=== PATIENT | female | born 2000 | race African-American/Black ===

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

== ENCOUNTER → 2020-01-19 12:04 | Outpatient (CLI) | payer OTHER, SELFPAY ==
[2020-01-19 13:33] LABS: HCG Qualitative, Serum Negative (Negative)
[2020-01-20 09:40] LABS: Hep A Ab, IgM Negative (Negative); Hepatitis B Core Antibody IgM Negative (Negative); Hepatitis B Surface Antigen Negative (Negative)
[2020-01-20 11:53] LABS: HIV Screen 4th Generation wRfx Non Reactive (Non Reactive); HSV 1 IgG, Type Spec <0.91 index (0.00-0.90); HSV 2 IgG, Type Spec <0.91 index (0.00-0.90); Hepatitis C Antibody <0.1 s/co ratio (0.0-0.9); Rapid Plasma Reagin Ab Titer Non Reactive (NonRea<1:1)
[2020-01-22 08:52] LABS: Neisseria gonorrhoeae, NAA Negative (Negative)
== END ==
PROVIDERS: Visit Provider Nurse Practitioner Obstetrics & Gynecology
DX: Z20.2 Contact with and (suspected) exposure to infections with a predominantly sexual mode of transmission (principal)
CPT/HCPCS: 36415; 80074; 84703; 86592; 86695; 86703; 86790; 87491; 87591; G0432

== ENCOUNTER → 2020-05-30 18:50 | Outpatient (CLI) | payer OTHER, SELFPAY | PROVIDERS: Visit Provider Internal Medicine | DX: J02.9 Acute pharyngitis, unspecified (principal) | CPT/HCPCS: 87070 ==

== ENCOUNTER → 2020-08-23 15:46 | Outpatient (CLI) | payer OTHER, SELFPAY | LOC: LAB.DROPOF 15:46 | PROVIDERS: Visit Provider Internal Medicine | DX: J02.9 Acute pharyngitis, unspecified (principal) | CPT/HCPCS: 87070 ==

== ENCOUNTER → 2020-10-16 17:51 | Outpatient (CLI) | payer OTHER, SELFPAY ==
[2020-10-16 19:07] LABS: Basophils # 0.1 K/mm3 (0-0.2); Basophils % 1.1 % (0.1-2.0); Eosinophils # 0.4 K/mm3 (0.0-0.4); Hematocrit 41.1 % (37.0-47.0); Hemoglobin 14.5 g/dL (12.2-16.2); Lymphocytes % 40.9 % (10-50); Mean Corpuscular HGB Conc 35.3 g/dL (31.8-35.4); Mean Corpuscular Hemoglobin 29.9 pg (27.0-31.2); Mean Corpuscular Volume 84.7 fl (81-99); Mean Platelet Volume 8.2 fl (7.4-10.4); Monocytes # 0.5 K/mm3 (0.1-1.0); Neutrophils # 4.8 K/mm3 (1.8-7.8); Platelet Count 456 K/mm3 (142-424); Red Blood Count 4.85 M/mm3 (4.20-5.40); Red Cell Distribution Width 13.5 % (11.5-17.5); White Blood Count 9.9 K/mm3 (4.5-13.0)
[2020-10-16 20:08] LABS: T4 (Thyroxine) 11.4 ug/dl (5.53-11.0)
[2020-10-16 20:21] LABS: Thyroid Stimulating Hormone 1.94 uIU/mL (0.465-4.68)
[2020-10-16 20:50] LABS: Erythrocyte Sedimentation Rate 25 mm/hr (0-20)
[2020-10-17 11:15] LABS: Free T4 (Free Thyroxine) 0.85 ng/dl (0.78-2.19)
== END ==
LOC: LAB.DROPOF 17:52
PROVIDERS: Visit Provider Internal Medicine
DX: M54.2 Cervicalgia (principal); M79.2 Neuralgia and neuritis, unspecified; R53.83 Other fatigue
CPT/HCPCS: 84436; 84439; 84443; 85025; 85651

== ENCOUNTER 2020-11-21 12:41 | Emergency (ER) | payer OTHER, SELFPAY ==
[2020-11-21 13:30] VITALS: BP 138/86; PULSE 92; RESP 18; TEMP 36.8; O2SAT 97; BMI 36.0
--- NOTE | 2020-11-21 14:40 | HMH.EDUTC ---
[facility] Disposition Clinical Impression: Otitis media Qualifiers: Otitis media type: suppurative Chronicity: acute Laterality: bilateral Recurrence: non-recurrent Spontaneous tympanic membrane rupture: without spontaneous rupture Qualified Code(s): H66.003 - Acute suppurative otitis media without spontaneous rupture of ear drum, bilateral Disposition: Home, Self-Care Condition on Discharge: Good Instructions: Middle Ear Infection Additional Instructions: Drink plenty of fluids. Take tylenol or ibuprofen for pain or fever. Take the medications as directed. Follow up with your regular doctor. GO TO THE ER FOR ANY WORSENING SYMPTOMS Prescriptions: Brompheniramine/Pseudoephed/Dm [Bromfed Dm Cough Syrup] 5 ml PO Q6HP PRN #240 ml PRN Reason: Cough Transmission Status: Received by [facility] Amoxicillin [Amoxicillin 500mg Tab] 500 mg PO TID 10 Days #30 tab Transmission Status: Received by [facility] predniSONE [Deltasone 10mg tablet] 10 mg PO BID 3 Days #6 tab Transmission Status: Received by [facility] Referrals: Donald Munoz [Primary Care Provider] - Forms: Work/School Release Time of Disposition: 14:44 Medical Decision Making - Medical Records Medical records reviewed: No: I reviewed the patient's medical records. - Jarett Inquiry Pt receiving controlled substance: No Vital Signs: 11/21/20 13:30 11/21/20 14:46 Temperature 98.2 F 98.2 F Temperature Source Oral Pulse Rate 92 H Pulse Rate [Right Brachial] 92 H Respiratory Rate 18 18 Blood Pressure 138/86 Blood Pressure [Right Arm] 138/86 Blood Pressure Mean [Right Arm] 103 Blood Pressure Source [Right Arm] Automatic Cuff Blood Pressure Position [Right Arm] Sitting 02 Sat by Pulse Oximetry 97 Oxygen Delivery Method Room Air [facility] HPI - General Stated complaint: Bilateral ear pain Time Seen by Provider: 11/21/20 14:41 Mode of Arrival: Ambulatory Source of Information: Patient Limitations: No Limitations Description of Symptoms (Recalled from Triage Doc. by RN): PATIENT C/O STOPPED UP EARS, CONGESTION, RUNNY NOSE AND COUGH X 1 WEEK HEENT Symptoms (Recalled from RN notes): Yes Resp Symptoms (Recalled from RN notes): Yes Skin Symptoms (Recalled from RN notes): No MS Symptoms (Recalled from RN notes): No Functional Status (Recalled from RN notes): WNL - History of Present Illness Provider Complaint: She states that she has had bilateral ear pain for the past 2 days. She has a history of getting ear infections frequently at this time of the year. - Related Data Home Medications Medication Instructions Recorded Confirmed sertraline 100 mg tablet 100 mg PO DAILY tab 04/13/19 11/21/20 Bisoprolol Fumarate [Bisoprolol 5 mg PO DAILY 11/21/20 11/21/20 5mg Tablet] norgestimate-ethinyl estradioL 1 each PO DAILY 11/21/20 11/21/20 [Sprintec 28 Day Tablet] Previous Rx's Medication Instructions Recorded Amoxicillin [Amoxicillin 500mg Tab] 500 mg PO TID 10 Days #30 tab 11/21/20 Brompheniramine/Pseudoephed/Dm 5 ml PO Q6HP PRN #240 ml 11/21/20 [Bromfed Dm Cough Syrup] predniSONE [Deltasone 10mg tablet] 10 mg PO BID 3 Days #6 tab 11/21/20 Allergies Allergy/AdvReac Type Severity Reaction Status Date / Time No Known Allergies Allergy Verified 05/06/19 10:35 - Worker's Comp Is this a Worker's Comp case?: No [facility] History - Hepatitis A Screen Drug use history?: No High risk sexual behaviors?: No History of sexually transmitted infection?: No Currently employed?: No Childcare worker?: No Do you have indoor plumbing?: Yes Do you have electricity?: Yes Attestation statement:: This patient has been screened for Hepatitis A risk factors. I have reviewed the patient's past medical history: Yes Medical History: Reports:: Anxiety, Depression, Gastroesophageal Reflux Disease(GERD), Hypertension, Palpitations Other Surgeries: Yes: No Previous Surgery Amputation: No Fractures: No
[2020-11-21 14:46] VITALS: BP 138/86; PULSE 92; RESP 18; TEMP 36.8; O2SAT 97
== END 2020-11-21 14:48 | disposition home or self-care (01) ==
PROVIDERS: Emergency Provider Nurse Practitioner Family; PCP Internal Medicine
DX: H66.003 Acute suppurative otitis media without spontaneous rupture of ear drum, bilateral (principal); K21.9 Gastro-esophageal reflux disease without esophagitis; F41.8 Other specified anxiety disorders; F17.210 Nicotine dependence, cigarettes, uncomplicated
CPT/HCPCS: 99202; G0463

== ENCOUNTER 2021-03-27 07:18 | Emergency (ER) | payer OTHER, SELFPAY ==
[2021-03-27 07:19] VITALS: BP 115/76; PULSE 116; RESP 16; TEMP 39.4; O2SAT 98; BMI 36.3
[2021-03-27 07:49] LABS: Basophils # 0.2 K/mm3 (0-0.2); Basophils % 1.6 % (0.1-2.0); Eosinophils # 0.3 K/mm3 (0.0-0.4); Eosinophils % 3.2 % (0.1-12.0); Hematocrit 41.9 % (37.0-47.0); Hemoglobin 13.4 g/dL (12.2-16.2); Lymphocytes # 0.9 K/mm3 (0.7-4.5); Lymphocytes % 9.3 % (10-50); Mean Corpuscular Hemoglobin 28.8 pg (27.0-31.2); Mean Corpuscular Volume 90.1 fl (81-99); Mean Platelet Volume 7.4 fl (7.4-10.4); Monocytes # 0.7 K/mm3 (0.1-1.0); Monocytes % 7.6 % (1.7-9.3); Neutrophils # 7.3 K/mm3 (1.8-7.8); Neutrophils % 78.2 % (37.0-80.0); Platelet Count 350 K/mm3 (142-424); Red Blood Count 4.65 M/mm3 (4.20-5.40); Red Cell Distribution Width 13.7 % (11.5-17.5); White Blood Count 9.4 K/mm3 (4.5-13.0)
[2021-03-27 07:53] LABS: Microscopic, Urine URINE MICROSCOPIC (MICROSCOPIC)
[2021-03-27 07:55] LABS: Influenza A, PCR Not Detected (NotDetected); Influenza B, PCR Not Detected (NotDetected)
[2021-03-27 07:56] LABS: Appearance,Urine CLEAR (Clear); Bilirubin,Urine Negative (Negative); Blood, Urine Negative (Negative); Color,Urine YELLOW (Yellow); Glucose,Urine (UA) Negative (Negative); Ketones,Urine Negative (Negative); Leukocyte Esterase,Urine Negative (Negative); Nitrate,Urine Negative (Negative); Protein,Urine Negative (Negative); Specific Gravity, Urine >= 1.030 (1.005-1.030); Urobilinogen,Urine 0.2 EU/dl (0.2)
[2021-03-27 07:58] LABS: Urine Pregnancy, HCG Qual. Negative (Negative)
[2021-03-27 08:00] VITALS: BP 111/53; PULSE 99; O2SAT 98
--- NOTE | 2021-03-27 08:02 | HMH.EDGENADL ---
ED Disposition Clinical Impression: COVID-19 virus infection, Abdominal pain, lower Disposition: Home, Self-Care Condition on Discharge: Fair Instructions: DI for Acute Abdominal Pain, DI for COVID-19 (Suspected or Confirmed ) Additional Instructions: Rest, drink plenty of fluids. Tylenol or Ibuprofen for fever and/or aches and pains. Monitor your symptoms. IF YOU HAVE AN EMERGENCY WARNING SIGN (INCLUDING TROUBLE BREATHING), SEEK EMERGENCY MEDICAL CARE IMMEDIATELY. COVID-19 Isolation: People with COVID-19 should isolate for 5 days. Then if they are asymptomatic (no symptoms) or their symptoms are resolving (without fever for 24 hours), follow that by 5 days of wearing a mask when around others to minimize the risk of infecting people you encounter. If you test positive for COVID-19 and never develop symptoms, day 0 is the day of your positive viral test (based on the date you were tested) and day 1 is the first full day after your positive test. If you develop symptoms after testing positive, your 5-day isolation period must start over. Day 0 is your first day of symptoms. Day 1 is the first full day after your symptoms developed. What to do: Stay in a separate room from other household members, if possible. Use a separate bathroom, if possible. Avoid contact with other members of the household and pets. Don?t share personal household items, like cups, towels, and utensils. Wear a mask when around other people if able. Additional instructions for ABDOMINAL PAIN: Return immediately if worsening abdominal pain, vomiting, shortness of breath, fever, vomiting of blood or abdominal distention. Referrals: Donald Munoz [Primary Care Provider] - - Critical Care Critical Care Time: No Attestation: On 03/27/21, the high probability of a clinically significant, sudden or life threatening deterioration of the following system(s) required my full and direct attention, intervention and personal management. The time I documented below is in addition to time spent performing reported procedures but includes the following listed in this critical care notation. Medical Decision Making - Jarett Inquiry Pt receiving controlled substance: No Vital Signs: 03/27/21 07:19 03/27/21 08:00 03/27/21 08:37 Temperature 103 F H 100.1 F H Temperature Source Oral Oral Pulse Rate 99 H 92 H Pulse Rate [Radial] 116 H Respiratory Rate 16 16 Blood Pressure 111/53 L 124/67 Blood Pressure [Right Arm] 115/76 Blood Pressure Mean 77 Blood Pressure Mean [Right Arm] 89 Blood Pressure Position Sitting 02 Sat by Pulse Oximetry 98 98 97 Oxygen Delivery Method Room Air 03/27/21 09:00 Temperature Temperature Source Pulse Rate 90 Pulse Rate [Radial] Respiratory Rate 17 Blood Pressure 120/53 L Blood Pressure [Right Arm] Blood Pressure Mean Blood Pressure Mean [Right Arm] Blood Pressure Position 02 Sat by Pulse Oximetry 96 Oxygen Delivery Method Room Air - Lab Data Lab Results 03/27/21 07:25: Urine Color Yellow, Urine Appearance Clear, Urine pH 6.0, Ur Specific [place] >= 1.030, Urine Protein Negative, Urine Glucose (UA) Negative, Urine Ketones Negative, Urine Blood Negative, Urine Nitrate Negative, Urine Bilirubin Negative, Urine Urobilinogen 0.2, Ur Leukocyte Esterase Negative, Urine RBC None, Urine WBC None, Ur Squamous Epith Cells None, Urine Bacteria None 03/27/21 07:32: SARS-CoV-2 (PCR) Detected A, Influenza A Untype (PCR) Not detected, Influenza Type B (PCR) Not detected 03/27/21 07:35: Urine HCG, Qual Negative 03/27/21 07:39: WBC 9.4, RBC 4.65, Hgb 13.4, Hct 41.9, MCV 90.1, MCH 28.8, MCHC 32.0, RDW 13.7, Plt Count 350, MPV 7.4, Neut % (Auto) 78.2, Lymph % (Auto) 9.3 L, [place] % (Auto) 7.6, Eos % (Auto) 3.2, Baso % (Auto) 1.6, Neut # (Auto) 7.3, Lymph # (Auto) 0.9, [place] # (Auto) 0.7, Eos # (Auto) 0.3, Baso # (Auto) 0.2 03/27/21 07:39: Sodium 135 L, Potassium 3.9, Chloride 100, Carbon Dioxide 25, Anion
[2021-03-27 08:05] LABS: Alanine Aminotransferase 20 U/L (12-78); Albumin Level 4.2 g/dl (3.5-5.0); Albumin/Globulin Ratio 1.2 (1.1-1.8); Alkaline Phosphatase 92 U/L (38-126); Anion Gap 13.9 mEq/L (5-15); Aspartate Amino Transferase 31 U/L (14-36); Bilirubin,Total 0.3 mg/dl (0.2-1.3); Blood Urea Nitrogen 9 mg/dl (7-17); Calcium 9.8 mg/dl (8.4-10.2); Carbon Dioxide 25 mmol/L (22.0-30.0); Chloride 100 mmol/L (98-107); Creatinine Clearance Estimated 188 mL/min (50-200); Estimated Glomerular Filt Rate 107 ml/min (>60); GFR (African American) 129 ML/MIN (>60); Globulin 3.4 g/dL (1.3-3.2); Glucose 102 mg/dl (74-100); Potassium 3.9 mmoL/L (3.5-5.1); Sodium 135 mmol/L (136-145); Total Protein,Serum 7.6 g/dl (6.3-8.2)
--- NOTE | 2021-03-27 08:10 | CT_ITS ---
FINAL REPORT CLINICAL HISTORY: abdo pain, fever COMPARISON: January 02, 2019 FINDINGS: CT OF THE ABDOMEN AND PELVIS WITH CONTRAST Axial CT images of the abdomen and pelvis were obtained after the administration of intravenous contrast. Coronal reformatted images were also obtained and reviewed.This study was performed with techniques to keep radiation doses as low as reasonably achievable (ALARA). Individualized dose reduction techniques using automated exposure control or adjustment of mA and/or kV according to the patient's size were employed. Abdomen: The lung bases are clear. The heart is normal in size. The liver has an unremarkable appearance, without evidence of mass or biliary ductal dilatation. The gallbladder is present. The spleen is unremarkable. No adrenal mass is present. The pancreas has an unremarkable appearance. The kidneys are normal, without evidence of mass or hydronephrosis. The aorta is normal in caliber. There is no free fluid or adenopathy. No mass or abnormal fluid collection is seen. Pelvis: The appendix is normal. The urinary bladder is unremarkable. No inflammatory process is seen. There are multiple mildly enlarged mesenteric lymph nodes that are partially improved since the prior exam and may be reactive. There is no evidence of bowel obstruction. IMPRESSION: Partially improved mildly enlarged mesenteric lymph nodes may be reactive. Normal appendix. Reviewed, Interpreted and Dictated by Hoang Toussaint III, MD Transcribed by Dong Self Authenticated by Hoang Toussaint III, MD on 03/27/2021 09:19:01 AM [facility]
[2021-03-27 08:12] LABS: Lactic Acid 1.6 mmol/L (0.7-2.1)
--- NOTE | 2021-03-27 08:13 | XR_ITS ---
FINAL REPORT CLINICAL HISTORY: cough, fever COMPARISON: November 18, 2018 FINDINGS: Two views of the chest were obtained. The heart size and pulmonary vascularity are within normal limits. The mediastinum is normal. No acute pulmonary abnormality is identified. There is no pneumothorax. The bony thorax is intact. IMPRESSION: No active cardiopulmonary disease. Reviewed, Interpreted and Dictated by Hoang Toussaint III, MD Transcribed by Carmen Sorto Authenticated by Hoang Toussaint III, MD on 03/27/2021 09:18:59 AM [facility]
[2021-03-27 08:24] LABS: Coronavirus 19, PCR Detected (NotDetected)
[2021-03-27 08:37] VITALS: BP 124/67; PULSE 92; RESP 16; TEMP 37.8; O2SAT 97
[2021-03-27 08:41] LABS: Strep Scrn Group A (Rapid) Negative (Negative)
[2021-03-27 09:00] VITALS: BP 120/53; PULSE 90; RESP 17; O2SAT 96
[2021-03-27 09:30] VITALS: BP 119/50; PULSE 93; RESP 17; O2SAT 94
[2021-03-27 09:40] VITALS: BP 113/74; PULSE 74; RESP 16; TEMP 36.6; O2SAT 98
== END 2021-03-27 09:42 | disposition home or self-care (01) ==
PROVIDERS: Emergency Medicine; Emergency Provider Emergency Medicine; PCP Internal Medicine
DX: U07.1 COVID-19 (principal); R10.30 Lower abdominal pain, unspecified; F41.8 Other specified anxiety disorders; M54.50 Low back pain, unspecified; K21.9 Gastro-esophageal reflux disease without esophagitis; F17.210 Nicotine dependence, cigarettes, uncomplicated
CPT/HCPCS: 71046; 74177; 80053; 81001; 81025; 83605; 85025; 87040; 87430; 96365; 99283; C9803; Q9967; U0003; U0005

== ENCOUNTER → 2021-06-29 12:25 | Outpatient (CLI) | payer OTHER, SELFPAY ==
[2021-06-29 15:11] LABS: HCG,Quantitative 15974 mIU/ml (0-5.42)
== END ==
PROVIDERS: Visit Provider Obstetrics & Gynecology
DX: Z01.419 Encounter for gynecological examination (general) (routine) without abnormal findings (principal)
CPT/HCPCS: 36415; 84702

== ENCOUNTER → 2021-07-31 11:57 | Outpatient (CLI) | payer OTHER, SELFPAY ==
[2021-07-31 12:50] LABS: Basophils # 0.1 K/mm3 (0-0.2); Basophils % 1.1 % (0.1-2.0); Eosinophils # 0.4 K/mm3 (0.0-0.4); Eosinophils % 3.1 % (0.1-12.0); Hematocrit 41.3 % (37.0-47.0); Hemoglobin 13.7 g/dL (12.2-16.2); Lymphocytes # 4.5 K/mm3 (0.7-4.5); Lymphocytes % 35.1 % (10-50); Mean Corpuscular HGB Conc 33.1 g/dL (31.8-35.4); Mean Corpuscular Hemoglobin 29.5 pg (27.0-31.2); Mean Corpuscular Volume 88.9 fl (81-99); Mean Platelet Volume 7.6 fl (7.4-10.4); Monocytes # 0.6 K/mm3 (0.1-1.0); Monocytes % 4.5 % (1.7-9.3); Neutrophils # 7.2 K/mm3 (1.8-7.8); Neutrophils % 56.2 % (37.0-80.0); Platelet Count 398 K/mm3 (142-424); Red Blood Count 4.65 M/mm3 (4.20-5.40); Red Cell Distribution Width 14.1 % (11.5-17.5); White Blood Count 12.8 K/mm3 (4.8-10.8)
[2021-07-31 13:01] LABS: Alanine Aminotransferase 14 U/L (12-78); Albumin Level 3.7 g/dl (3.5-5.0); Albumin/Globulin Ratio 1.2 (1.1-1.8); Alkaline Phosphatase 100 U/L (38-126); Aspartate Amino Transferase 24 U/L (14-36); Bilirubin,Total 0.3 mg/dl (0.2-1.3); Blood Urea Nitrogen 8 mg/dl (7-17); Calcium 9.9 mg/dl (8.4-10.2); Carbon Dioxide 24 mmol/L (22.0-30.0); Chloride 101 mmol/L (98-107); Estimated Glomerular Filt Rate 156 ml/min (>60); GFR (African American) 188 ML/MIN (>60); Globulin 3.1 g/dL (1.3-3.2); Glucose 87 mg/dl (74-100); Sodium 134 mmol/L (136-145); Total Protein,Serum 6.8 g/dl (6.3-8.2)
[2021-08-01 06:27] LABS: HSV 1 IgG, Type Spec 8.84 index (0.00-0.90); HSV 2 IgG, Type Spec <0.91 index (0.00-0.90); Rubella Antibodies, IgG 3.68 index (Immune >0.99)
[2021-08-01 09:29] LABS: HIV Screen 4th Generation wRfx Non Reactive (Non Reactive); Hepatitis B Surface Antigen Negative (Negative); Hepatitis C Antibody <0.1 s/co ratio (0.0-0.9)
[2021-08-01 11:19] LABS: Rapid Plasma Reagin Ab Titer Non Reactive (NonRea<1:1)
== END ==
LOC: LAB 11:58
PROVIDERS: Visit Provider Obstetrics & Gynecology
DX: Z34.90 Encounter for supervision of normal pregnancy, unspecified, unspecified trimester (principal); Z3A.01 Less than 8 weeks gestation of pregnancy; I10 Essential (primary) hypertension
CPT/HCPCS: 36415; 80053; 85025; 86592; 86695; 86703; 86762; 86790; 86850; 87340; 87380; G0432

== ENCOUNTER → 2021-08-28 12:17 | Outpatient (CLI) | payer OTHER, SELFPAY | PROVIDERS: PCP Internal Medicine; Visit Provider Obstetrics & Gynecology | DX: Z31.430 Encounter of female for testing for genetic disease carrier status for procreative management (principal); Z36.0 Encounter for antenatal screening for chromosomal anomalies; O28.9 Unspecified abnormal findings on antenatal screening of mother | CPT/HCPCS: 36415 ==

== ENCOUNTER → 2021-10-09 13:52 | Outpatient (CLI) | payer OTHER, MEDICAID, SELFPAY ==
--- NOTE | 2021-10-09 13:53 | US_ITS ---
FINAL REPORT CLINICAL HISTORY: OB complete FINDINGS: There is a single live intrauterine gestation. Presentation is breech. The cervix is closed and measures 4.2 cm. Placenta is anterior. Cardiac activity is confirmed at 156 bpm. Three-vessel cord with satisfactory umbilical cord insertion. Four-chamber heart is noted. brain and ventricles are unremarkable. Chest and diaphragm are unremarkable. ABDOMEN: Both kidneys are unremarkable. Stomach is unremarkable. SPINE: No anomalies identified. Both arms and legs noted. AMNIOTIC FLUID: Appropriate amount. MEASUREMENTS: ULTRASOUND AGE: 20 weeks 1 days. GESTATION AGE: 20 weeks 1 days. ESTIMATED WEIGHT: 330 g GROWTH PERCENTILE: 41% BPD: 4.7 cm consistent with 20 weeks 1 days. OFD: 6.3 cm consistent with 21 weeks 0 days. HC: 17.4 cm consistent with 20 weeks 0 days. AC: 14.9 cm consistent with 20 weeks 1 days. FL: 3.2 cm consistent with 20 weeks 1 days. CEREBELLUM: 2.0 cm consistent with 20 weeks 2 days. HUMERUS: 3.2 cm consistent with 20 weeks 4 days. HC/AC: 1.17 CI: 74% FL/BPD: 69% FL/AC: 22% IMPRESSION: Single living IUP with an ultrasound age of 20 weeks 1 days. Reviewed, Interpreted and Dictated by Hoang Toussaint III, MD Transcribed by Dong Self Authenticated and [facility]
== END ==
PROVIDERS: PCP Internal Medicine; Visit Provider Obstetrics & Gynecology
DX: Z34.90 Encounter for supervision of normal pregnancy, unspecified, unspecified trimester (principal)
CPT/HCPCS: 76811

== ENCOUNTER 2021-11-17 09:14 | Outpatient (CLI) | payer MEDICAID, SELFPAY ==
[2021-11-17 09:22] VITALS: BMI 40.9
[2021-11-17 09:42] VITALS: BP 127/76; PULSE 86; RESP 18; TEMP 36.9; O2SAT 98; BMI 40.9
[2021-11-17 10:01] LABS: Microscopic, Urine URINE MICROSCOPIC (MICROSCOPIC)
[2021-11-17 10:04] LABS: Appearance,Urine CLEAR (Clear); Bilirubin,Urine Negative (Negative); Blood, Urine Negative (Negative); Color,Urine YELLOW (Yellow); Glucose,Urine (UA) Negative (Negative); Ketones,Urine Negative (Negative); Leukocyte Esterase,Urine Negative (Negative); Nitrate,Urine Negative (Negative); PH,Urine 7.5 (5.0-8.5); Protein,Urine Negative (Negative); Specific Gravity, Urine 1.015 (1.005-1.030); Urobilinogen,Urine 0.2 EU/dl (0.2)
[2021-11-17 10:12] LABS: Fetal Membrane Rupture (Rapid) Negative (Negative)
[2021-11-17 10:17] LABS: Amphetamine/Metha Screen,Urine Negative ng/ml (<1000); Bacteria,Urine Trace /lpf; Benzodiazepines Screen,Urine Negative ng/ml (<200); WBC,Urine Occasional #/hpf (0-3)
[2021-11-17 10:18] LABS: Barbiturates Screen,Urine Negative ng/ml (<200); Cannabinoid Screen,Urine Negative ng/ml (<50)
[2021-11-17 10:19] LABS: Cocaine Screen,Urine Negative ng/ml (<300)
[2021-11-17 10:20] LABS: Methadone Screen,Urine Negative ng/ml (<300); Opiate Screen,Urine Negative ng/ml (<300)
[2021-11-17 10:21] LABS: Phencyclidine Screen,Urine Negative ng/ml (<25)
== END 2021-11-17 10:32 | disposition home or self-care (01) ==
LOC: OBOUT 09:15 → OB 09:15
PROVIDERS: PCP Internal Medicine; Visit Provider Nurse Practitioner Obstetrics & Gynecology
DX: O26.899 Other specified pregnancy related conditions, unspecified trimester (principal); Z3A.25 25 weeks gestation of pregnancy
CPT/HCPCS: 59025; 80305; 81001; 84112; G0463

== ENCOUNTER → 2021-11-17 10:36 | Outpatient (CLI) | payer MEDICAID, SELFPAY ==
[2021-11-17 11:07] LABS: Basophils # 0.3 K/mm3 (0-0.2); Basophils % 1.7 % (0.1-2.0); Eosinophils # 0.5 K/mm3 (0.0-0.4); Eosinophils % 3.3 % (0.1-12.0); Hematocrit 38.9 % (37.0-47.0); Hemoglobin 12.7 g/dL (12.2-16.2); Lymphocytes # 4.7 K/mm3 (0.7-4.5); Lymphocytes % 28.6 % (10-50); Mean Corpuscular HGB Conc 32.7 g/dL (31.8-35.4); Mean Corpuscular Hemoglobin 28.8 pg (27.0-31.2); Mean Corpuscular Volume 88.1 fl (81-99); Mean Platelet Volume 7.9 fl (7.4-10.4); Monocytes # 0.8 K/mm3 (0.1-1.0); Monocytes % 4.7 % (1.7-9.3); Neutrophils # 10.1 K/mm3 (1.8-7.8); Neutrophils % 61.7 % (37.0-80.0); Platelet Count 388 K/mm3 (142-424); Red Blood Count 4.42 M/mm3 (4.20-5.40); White Blood Count 16.3 K/mm3 (4.8-10.8)
[2021-11-17 11:12] LABS: MANUAL DIFFERENTIAL MANUAL DIFFERENTIAL (MANUAL DIFF)
[2021-11-17 11:15] LABS: Glucose,Fasting 82 mg/dl (74-100)
[2021-11-17 12:31] LABS: Eosinophils % 3 % (0-3); Lymphocytes % 44 % (10-50); Monocytes % 1 % (2-9); Neutrophils % 52 % (42-76); Platelet Estimate Normal; Total Cells Counted 100
[2021-11-17 12:33] LABS: RBC Morphology Normal
[2021-11-17 13:15] LABS: Glucose 1 Hour 117 mg/dL (74-100)
== END ==
PROVIDERS: PCP Internal Medicine; Visit Provider Obstetrics & Gynecology
DX: Z34.90 Encounter for supervision of normal pregnancy, unspecified, unspecified trimester (principal)
CPT/HCPCS: 36415; 82951; 85007; 85025

== ENCOUNTER 2022-01-07 10:12 | Outpatient (CLI) | payer MEDICAID, SELFPAY ==
[2022-01-07 10:23] VITALS: BMI 42.5
[2022-01-07 10:55] VITALS: BP 154/92; PULSE 116; RESP 17; TEMP 37.1; O2SAT 96; BMI 42.5
[2022-01-07 10:58] LABS: Appearance,Urine SL CLOUDY (Clear); Bilirubin,Urine Negative (Negative); Blood, Urine Negative (Negative); Color,Urine YELLOW (Yellow); Glucose,Urine (UA) Negative (Negative); Ketones,Urine TRACE (Negative); Leukocyte Esterase,Urine Negative (Negative); Microscopic, Urine URINE MICROSCOPIC (MICROSCOPIC); Nitrate,Urine Negative (Negative); Protein,Urine TRACE (Negative); Specific Gravity, Urine >= 1.030 (1.005-1.030); Urobilinogen,Urine 0.2 EU/dl (0.2)
[2022-01-07 11:05] VITALS: BP 144/82; PULSE 103
[2022-01-07 11:09] LABS: Amphetamine/Metha Screen,Urine Negative ng/ml (<1000)
[2022-01-07 11:10] LABS: Barbiturates Screen,Urine Negative ng/ml (<200)
[2022-01-07 11:11] LABS: Benzodiazepines Screen,Urine Negative ng/ml (<200); Cannabinoid Screen,Urine Negative ng/ml (<50)
[2022-01-07 11:12] LABS: Cocaine Screen,Urine Negative ng/ml (<300)
[2022-01-07 11:13] LABS: Bacteria,Urine Trace /lpf; Methadone Screen,Urine Negative ng/ml (<300); Opiate Screen,Urine Negative ng/ml (<300); RBC,Urine Occasional #/hpf (0-3)
[2022-01-07 11:14] LABS: Phencyclidine Screen,Urine Negative ng/ml (<25)
[2022-01-07 11:43] VITALS: BP 129/74; PULSE 94
[2022-01-07 12:05] LABS: Basophils # 0.2 K/mm3 (0-0.2); Basophils % 1.2 % (0.1-2.0); Eosinophils # 0.5 K/mm3 (0.0-0.4); Eosinophils % 3.8 % (0.1-12.0); Hematocrit 39.5 % (37.0-47.0); Hemoglobin 12.9 g/dL (12.2-16.2); Lymphocytes # 3.5 K/mm3 (0.7-4.5); Lymphocytes % 25.6 % (10-50); Mean Corpuscular HGB Conc 32.6 g/dL (31.8-35.4); Mean Corpuscular Hemoglobin 27.7 pg (27.0-31.2); Mean Corpuscular Volume 85.1 fl (81-99); Mean Platelet Volume 7.9 fl (7.4-10.4); Monocytes # 0.9 K/mm3 (0.1-1.0); Monocytes % 6.8 % (1.7-9.3); Neutrophils # 8.5 K/mm3 (1.8-7.8); Neutrophils % 62.7 % (37.0-80.0); Platelet Count 388 K/mm3 (142-424); Red Blood Count 4.64 M/mm3 (4.20-5.40); Red Cell Distribution Width 13.9 % (11.5-17.5); White Blood Count 13.6 K/mm3 (4.8-10.8)
[2022-01-07 12:17] LABS: Alanine Aminotransferase 16 U/L (12-78); Aspartate Amino Transferase 23 U/L (14-36); Blood Urea Nitrogen 8 mg/dl (7-17); Calcium 9.4 mg/dl (8.4-10.2); Carbon Dioxide 24 mmol/L (22.0-30.0); Chloride 101 mmol/L (98-107); Creatinine Clearance Estimated 184 mL/min (50-200); Estimated Glomerular Filt Rate 201 ml/min (>60); GFR (African American) 244 ML/MIN (>60); Glucose 117 mg/dl (74-100); Sodium 134 mmol/L (136-145); Uric Acid 4.6 mg/dl (2.5-6.2)
[2022-01-07 12:22] LABS: Activated Partial Thrombo Time 24.2 seconds (22.8-30.6); Fibrinogen 746 mg/dL (229.9-363.5); INR 0.88 (0.9-1.1); Prothrombin Time 9.6 seconds (10.1-12.5)
[2022-01-07 12:25] LABS: D-Dimer 1.06 ug/mL (0.0-0.5)
[2022-01-07 12:31] LABS: Lactate Dehydrogenase 180 U/L (313-618)
[2022-01-07 12:55] LABS: Creatinine,Urine Random 261 mg/dL (Not Estab.)
[2022-01-07 13:00] LABS: Microalbumin/Creatinine Ratio 21.4
== END 2022-01-07 13:10 | disposition home or self-care (01) ==
LOC: OBOUT 10:15 → OB 10:16
PROVIDERS: PCP Internal Medicine; Visit Provider Obstetrics & Gynecology
DX: O26.893 Other specified pregnancy related conditions, third trimester (principal); Z3A.33 33 weeks gestation of pregnancy; R00.0 Tachycardia, unspecified; R42 Dizziness and giddiness
CPT/HCPCS: 59025; 80048; 80305; 81001; 82043; 82570; 83615; 84450; 84460; 84550; 85025; 85378; 85384; 85610; 85730; G0463

== ENCOUNTER 2022-01-24 00:32 | Outpatient (CLI) | payer MEDICAID, SELFPAY ==
[2022-01-24 00:51] VITALS: BMI 44.4
[2022-01-24 01:15] VITALS: BP 159/95; PULSE 89; RESP 18; TEMP 37; O2SAT 100; BMI 44.4
== END 2022-01-24 02:35 | disposition home or self-care (01) ==
LOC: OBOUT 00:33 → OB 00:33
PROVIDERS: PCP Internal Medicine; Visit Provider Obstetrics & Gynecology
DX: O26.893 Other specified pregnancy related conditions, third trimester (principal); Z3A.35 35 weeks gestation of pregnancy
CPT/HCPCS: 59025; 96360

== ENCOUNTER → 2022-02-04 16:51 | Outpatient (CLI) | payer MEDICAID, SELFPAY ==
[2022-02-04 17:25] LABS: Basophils # 0.1 K/mm3 (0-0.2); Basophils % 0.9 % (0.1-2.0); Eosinophils # 0.4 K/mm3 (0.0-0.4); Eosinophils % 2.5 % (0.1-12.0); Hematocrit 39.1 % (37.0-47.0); Hemoglobin 12.2 g/dL (12.2-16.2); Lymphocytes # 3.8 K/mm3 (0.7-4.5); Lymphocytes % 27.4 % (10-50); Mean Corpuscular HGB Conc 31.1 g/dL (31.8-35.4); Mean Corpuscular Hemoglobin 26.4 pg (27.0-31.2); Mean Corpuscular Volume 84.8 fl (81-99); Mean Platelet Volume 8.2 fl (7.4-10.4); Monocytes # 0.7 K/mm3 (0.1-1.0); Monocytes % 5.1 % (1.7-9.3); Neutrophils % 64.1 % (37.0-80.0); Platelet Count 418 K/mm3 (142-424); Red Blood Count 4.62 M/mm3 (4.20-5.40); Red Cell Distribution Width 14.5 % (11.5-17.5)
[2022-02-04 17:38] LABS: Fibrinogen 610 mg/dL (229.9-363.5)
[2022-02-04 18:54] LABS: Alanine Aminotransferase 14 U/L (12-78); Albumin Level 3.6 g/dl (3.5-5.0); Albumin/Globulin Ratio 1.1 (1.1-1.8); Alkaline Phosphatase 698 U/L (38-126); Anion Gap 17.6 mEq/L (5-15); Aspartate Amino Transferase 25 U/L (14-36); Bilirubin,Total 0.3 mg/dl (0.2-1.3); Blood Urea Nitrogen 13 mg/dl (7-17); Calcium 10.3 mg/dl (8.4-10.2); Carbon Dioxide 25 mmol/L (22.0-30.0); Chloride 96 mmol/L (98-107); Estimated Glomerular Filt Rate 156 ml/min (>60); GFR (African American) 188 ML/MIN (>60); Globulin 3.2 g/dL (1.3-3.2); Glucose 86 mg/dl (74-100); Potassium 4.6 mmoL/L (3.5-5.1); Sodium 134 mmol/L (136-145); Total Protein,Serum 6.8 g/dl (6.3-8.2); Uric Acid 4.9 mg/dl (2.5-6.2)
[2022-02-04 18:57] LABS: Microalbumin/Creatinine Ratio 57.4
[2022-02-04 18:59] LABS: Creatinine,Urine Random 206 mg/dL (Not Estab.)
== END ==
LOC: LAB 16:52 → LAB.DROPOF 02-05 06:08
PROVIDERS: PCP Internal Medicine; Visit Provider Obstetrics & Gynecology
DX: Z34.90 Encounter for supervision of normal pregnancy, unspecified, unspecified trimester (principal); I10 Essential (primary) hypertension
CPT/HCPCS: 36415; 80053; 82043; 82570; 84550; 85025; 85384; 86403

== ENCOUNTER → 2022-02-07 13:27 | Outpatient (CLI) | payer MEDICAID, SELFPAY ==
[2022-02-07 17:11] LABS: Collection Time,Urine 24 hours; Total Volume,Urine 550 mL (600-1600)
[2022-02-07 22:33] LABS: Creatinine 24 Hour,Urine 1183 mg/24hr (630-2500)
[2022-02-07 22:35] LABS: Creatinine,Urine Random 215 mg/dL (Not Estab.)
[2022-02-07 23:28] LABS: Total Protein 24 Hour,Urine 72 mg/24 hr (40-90)
[2022-02-08 07:12] LABS: Creatinine Clearance Urine 133.4 mL/min (25-115); Patient Height,Urine 63 inches; Patient Weight,Urine 253 lbs
== END ==
PROVIDERS: PCP Internal Medicine; Visit Provider Obstetrics & Gynecology
DX: Z34.90 Encounter for supervision of normal pregnancy, unspecified, unspecified trimester (principal); I10 Essential (primary) hypertension
CPT/HCPCS: 82575; 84155

== ENCOUNTER 2022-02-08 15:56 | Outpatient (CLI) | payer MEDICAID, SELFPAY ==
[2022-02-08] VITALS (7 sets, daily range): BP systolic 138–167; BP diastolic 79–109; PULSE 96; RESP 18–20; TEMP 37.1; O2SAT 100; BMI 44.8
[2022-02-08 17:55] LABS: Microscopic, Urine URINE MICROSCOPIC (MICROSCOPIC)
[2022-02-08 18:09] LABS: Appearance,Urine CLEAR (Clear); Bilirubin,Urine Negative (Negative); Blood, Urine Negative (Negative); Color,Urine YELLOW (Yellow); Glucose,Urine (UA) Negative (Negative); Ketones,Urine Negative (Negative); Leukocyte Esterase,Urine Negative (Negative); Nitrate,Urine Negative (Negative); Protein,Urine 1+ (Negative); Specific Gravity, Urine >= 1.030 (1.005-1.030); Urobilinogen,Urine 0.2 EU/dl (0.2)
[2022-02-08 18:22] LABS: Benzodiazepines Screen,Urine Negative ng/ml (<200)
[2022-02-08 18:23] LABS: Amphetamine/Metha Screen,Urine Negative ng/ml (<1000)
[2022-02-08 18:24] LABS: Bacteria,Urine Trace /lpf; Barbiturates Screen,Urine Negative ng/ml (<200); Cannabinoid Screen,Urine Negative ng/ml (<50); WBC,Urine Occasional #/hpf (0-3)
[2022-02-08 18:25] LABS: Cocaine Screen,Urine Negative ng/ml (<300)
[2022-02-08 18:26] LABS: Methadone Screen,Urine Negative ng/ml (<300); Opiate Screen,Urine Negative ng/ml (<300)
[2022-02-08 18:27] LABS: Phencyclidine Screen,Urine Negative ng/ml (<25)
== END 2022-02-08 18:30 | disposition home or self-care (01) ==
LOC: OBOUT 15:59 → OB 16:00
PROVIDERS: Obstetrics & Gynecology; PCP Obstetrics & Gynecology; Visit Provider Obstetrics & Gynecology
DX: Z34.90 Encounter for supervision of normal pregnancy, unspecified, unspecified trimester (principal)
CPT/HCPCS: 59025; 80305; 81001

== ENCOUNTER 2022-02-09 15:38 | Inpatient (IN) | payer MEDICAID, SELFPAY ==
[2022-02-09] VITALS (14 sets, daily range): BP systolic 125–168; BP diastolic 64–101; PULSE 87–109; RESP 17–18; TEMP 36.7–36.8; O2SAT 98–99; BMI 44.8
[2022-02-09 14:32] LABS: Barbiturates Screen,Urine Negative ng/ml (<200)
[2022-02-09 14:33] LABS: Amphetamine/Metha Screen,Urine Negative ng/ml (<1000); Benzodiazepines Screen,Urine Negative ng/ml (<200)
[2022-02-09 14:34] LABS: Cannabinoid Screen,Urine Negative ng/ml (<50)
[2022-02-09 14:35] LABS: Cocaine Screen,Urine Negative ng/ml (<300); Methadone Screen,Urine Negative ng/ml (<300)
[2022-02-09 14:36] LABS: Opiate Screen,Urine Negative ng/ml (<300)
[2022-02-09 14:37] LABS: Phencyclidine Screen,Urine Negative ng/ml (<25)
[2022-02-09 15:45] LABS: Basophils # 0.1 K/mm3 (0-0.2); Basophils % 0.8 % (0.1-2.0); Eosinophils # 0.3 K/mm3 (0.0-0.4); Eosinophils % 1.9 % (0.1-12.0); Hematocrit 37.8 % (37.0-47.0); Lymphocytes # 3.8 K/mm3 (0.7-4.5); Lymphocytes % 27.4 % (10-50); Mean Corpuscular HGB Conc 31.8 g/dL (31.8-35.4); Mean Corpuscular Hemoglobin 26.7 pg (27.0-31.2); Mean Corpuscular Volume 84.1 fl (81-99); Mean Platelet Volume 8.1 fl (7.4-10.4); Monocytes % 7.4 % (1.7-9.3); Neutrophils # 8.8 K/mm3 (1.8-7.8); Neutrophils % 62.5 % (37.0-80.0); Platelet Count 418 K/mm3 (142-424); Red Cell Distribution Width 14.7 % (11.5-17.5)
[2022-02-09 16:09] LABS: Coronavirus 19, PCR Not Detected (NotDetected); Influenza A, PCR Not Detected (NotDetected); Influenza B, PCR Not Detected (NotDetected)
[2022-02-09 16:19] LABS: Magnesium 1.6 mg/dl (1.6-2.3)
--- NOTE | 2022-02-09 17:00 | EXP.HP ---
History of Present Illness *Admission Date: 02/09/22 *Reason for visit:: Increased blood pressure, anxiety *History of present illness: She is a 21-year-old 1 para 0 at 37 weeks gestational age. She was seen yesterday with increased blood pressure and it seemed to settle on its own. She also has severe anxiety and we thought the blood pressure may be elevated as result of that. Her [facility] lab work was completely normal. Today she started feeling jittery all day and her blood pressure is slightly elevated today again. She is on labetalol 200 mg twice daily. She did take her dose this morning. Given the fact that she is 37 weeks along and her blood pressure is elevated, we will go ahead and induce her labor. [facility] Disclaimer: The information contained in this section may have been updated after the patient was seen, as this information can be updated by other users. Medical History Anxiety Carpal tunnel syndrome during Essential hypertension Family History No significant family history Social History Smoking Status: Current every day smoker tobacco type: e-cigarettes alcohol intake: current substance use type: denies use current occupational status: employed Travel in the last 8 weeks: None household members: family housing: house Review of Systems Review of Systems Review of systems:: pertinent systems reviewed and negative unless documented below Meds Home Medications and Allergies Home Medications Medication Instructions Recorded Confirmed Type sertraline 100 mg tablet 100 mg PO DAILY Depression 04/13/19 02/04/22 History prenat.vits,jemima,hjd-slpr-pmavh 1 tab PO DAILY Supplement 07/06/21 02/04/22 History famotidine 20 mg tablet (Pepcid) 20 mg PO DAILY Heartburn 01/17/22 02/04/22 History buspirone 5 mg tablet 5 mg PO BID Anxiety 01/24/22 02/04/22 History labetalol 100 mg tablet 100 mg PO BID #60 tabs 02/08/22 Rx New Prescriptions to Start Prescriptions: Allergies Allergy/AdvReac Type Severity Reaction Status Date / Time doxylamine AdvReac Severe Shakiness Verified 02/04/22 15:34 [From Unisom (doxylamine)] Exam Data for Last 24 hours Vital signs and Labs for Last 24 Hours: Temp Pulse Resp BP Pulse Ox 98.0 F 109 H 18 168/99 H 99 02/09/22 14:00 02/09/22 14:00 02/09/22 14:00 02/09/22 14:00 02/09/22 14:00 Laboratory Results - last 24 hr 02/09/22 13:55: Urine Opiates Screen Negative, Urine Methadone Screen Negative, Ur Barbituates Screen Negative, Ur Phencyclidine Scrn Negative, Ur Amphetamines Screen Negative, U Benzodiazepines Scrn Negative, Urine Cocaine Screen Negative, U Marijuana (THC) Screen Negative 02/09/22 15:05: SARS-CoV-2 (PCR) Not detected, Influenza A Untype (PCR) Not detected, Influenza Type B (PCR) Not detected 02/09/22 15:20: WBC 14.0 H, RBC 4.50, Hgb 12.0 L, Hct 37.8, MCV 84.1, MCH 26.7 L, MCHC 31.8, RDW 14.7, Plt Count 418, MPV 8.1, Neut % (Auto) 62.5, Lymph % (Auto) 27.4, [place] % (Auto) 7.4, Eos % (Auto) 1.9, Baso % (Auto) 0.8, Neut # (Auto) 8.8 H, Lymph # (Auto) 3.8, [place] # (Auto) 1.0, Eos # (Auto) 0.3, Baso # (Auto) 0.1 02/09/22 15:20: Magnesium 1.6 I & O for Last 24 hours: Intake & Output 02/07/22 02/08/22 02/09/22 02/10/22 11:59 11:59 11:59 11:59 Weight 253 lb Constitutional Constitutional: no acute distress *Routine HEENT Exam Head: Present normocephalic Eye: Present EOMI and PERRL ENT: Present mucous membranes moist *Routine Neck Exam Neck: Present supple; Absent lymphadenopathy *Routine Respiratory Exam Respiratory: Present CTA bilaterally *Routine Cardiovascular Exam Cardiovascular: Present RRR *Routine Abdominal Exam Abdominal: Present soft and normoactive bowel sounds; Absent tenderness *Routine Rectal Exam Rectal:: deferred *Routine Genitalia
[2022-02-10] VITALS (30 sets, daily range): BP systolic 108–178; BP diastolic 53–104; PULSE 85–100; RESP 12–18; TEMP 36.3–36.9; O2SAT 97–99
--- NOTE | 2022-02-10 07:51 | P.CONPHA_ITS ---
Pharmacy Intervention Comments: MEDICATION RECONCILIATION COMPLETED ON PATIENT USING EXTERNAL FILL HISTORY FROM PHARMACY AND LIST FROM [employer]. -SURINDER GHOSHD
--- NOTE | 2022-02-10 07:51 | HMH.PHAINT1 ---
Pharmacy Intervention Comments: MEDICATION RECONCILIATION COMPLETED ON PATIENT USING EXTERNAL FILL HISTORY FROM PHARMACY AND LIST FROM [facility]ERY CUTTER OFFICE. -SURINDER GHOSHD
--- NOTE | 2022-02-10 09:46 | EXP.ANES.CKL ---
[facility] Disclaimer: The information contained in this section may have been updated after the patient was seen, as this information can be updated by other users. Medical History Anxiety Carpal tunnel syndrome during Essential hypertension Family History No significant family history Social History Smoking Status: Current every day smoker tobacco type: e-cigarettes alcohol intake: current substance use type: denies use current occupational status: employed Travel in the last 8 weeks: None household members: family housing: house [facility] Anesthesia Checklist Patient Identification Patient Identification: Verbal (Name & ) Structural Data Admitted From: Inpatient Planned Operative Procedure/s: labor epidural Consent for Planned Operative Procedure(s) Verified: Yes Airway Assessment C-Spine Mobility Assessed: Yes TMJ Mobility Assessed: Yes Dentition: Good Dentition Neurological Assessment Level of Consciousness: Awake, Alert and Appropriate Anesthesia Plan Anesthesia Risk discussed: Yes Anesthesia Plan: Verified ASA Class: II Anesthesia Type: Epidural
--- NOTE | 2022-02-10 10:22 | EXP.ACUTE.PN ---
Subjective *Date: 02/10/22 *Time: 10:22 Interval history: She has been receiving IV oxytocin since about 5 this morning. She had epidural and had some changes in her heart rate tracing with persistent decelerations. As result of that we elected to perform a section. heart tones have recovered but she has not changed her cervix. She remains at 2 cm. Medical Exam Vital signs and Labs for Last 24 Hours: Vital Signs Temp Pulse Resp BP Pulse Ox 02/10/22 06:00 144/83 H 02/10/22 05:30 146/84 H 02/10/22 03:00 138/76 02/10/22 02:00 125/64 02/10/22 01:00 140/75 02/10/22 00:00 138/77 02/09/22 23:00 135/74 02/09/22 22:00 129/66 02/09/22 21:00 143/79 H 02/09/22 20:30 152/87 H 02/10/22 04:12 98.5 F 98 H 18 133/87 98 02/09/22 19:46 98.2 F 96 H 17 157/87 H 98 02/09/22 18:30 101 H 18 141/82 H 02/09/22 18:00 99 H 18 142/80 H 02/09/22 17:30 100 H 138/75 02/09/22 17:00 87 145/87 H 02/09/22 16:15 97 H 158/85 H 02/09/22 16:00 92 H 18 168/95 H 02/09/22 15:53 102 H 18 165/101 H 02/09/22 14:00 98.0 F 109 H 18 168/99 H 99 Intake and Output 02/09/22 02/10/22 02/10/22 19:59 03:59 11:59 Other: Weight 253 lb Patient Weight 02/10/22 11:59 Weight 253 lb Laboratory Results - last 24 hr 02/09/22 13:55: Urine Opiates Screen Negative, Urine Methadone Screen Negative, Ur Barbituates Screen Negative, Ur Phencyclidine Scrn Negative, Ur Amphetamines Screen Negative, U Benzodiazepines Scrn Negative, Urine Cocaine Screen Negative, U Marijuana (THC) Screen Negative 02/09/22 15:05: SARS-CoV-2 (PCR) Not detected, Influenza A Untype (PCR) Not detected, Influenza Type B (PCR) Not detected 02/09/22 15:20: WBC 14.0 H, RBC 4.50, Hgb 12.0 L, Hct 37.8, MCV 84.1, MCH 26.7 L, MCHC 31.8, RDW 14.7, Plt Count 418, MPV 8.1, Neut % (Auto) 62.5, Lymph % (Auto) 27.4, Mills % (Auto) 7.4, Eos % (Auto) 1.9, Baso % (Auto) 0.8, Neut # (Auto) 8.8 H, Lymph # (Auto) 3.8, Mills # (Auto) 1.0, Eos # (Auto) 0.3, Baso # (Auto) 0.1 02/09/22 15:20: Blood Type O Positive, Antibody Screen Negative 02/09/22 15:20: Magnesium 1.6 I & O for Labs for Last 24 Hours: Intake & Output 02/07/22 02/08/22 02/09/22 02/10/22 11:59 11:59 11:59 11:59 Weight 253 lb Constitutional: Present no acute distress Head: Present atraumatic Assessment and Plan *Assessment and plan (1) Hypertension: Status: Acute Qualifiers: Hypertension type: primary hypertension Qualified Code(s): I10 - Essential (primary) hypertension Category: Medical Code(s): I10 - Essential (primary) hypertension (2) Anxiety: Status: Acute Category: Medical Code(s): F41.9 - Anxiety disorder, unspecified (3) : Status: Acute Qualifiers: Weeks of gestation: 32 weeks Qualified Code(s): Z3A.32 - 32 weeks gestation of Category: Medical Code(s): Z34.90 - Encounter for supervision of normal , unspecified, unspecified trimester (4) Abnormal heart rate complicating : Status: Acute Category: Medical Code(s): O36.8390 - Maternal care for abnormalities of the heart rate or rhythm, unspecified trimester, not applicable or unspecified Plan Given the fact that she really has not changed her cervix and the fact that she was having persistent decelerations we will go ahead with a section. We discussed the risks of surgery were includes bleeding, infection, injuries to the bowel and bladder. Discussed the rare risk of DVT and the need for DVT prophylaxis. All questions were answered and consents were signed.
[2022-02-10 10:50] LABS: Cord Blood PH 7.26 (7.35-7.45)
--- NOTE | 2022-02-10 10:50 | PC.NURSE ---
[id number] - notified by Kirill Mims RN to page OR team stat, strand forming machine operator notified 1000 - Janett returned call, Nichole returned call [phone] - Srikanth returned call [phone] - notified to josr Perez, strand forming machine operator notified [phone] - Dr Perez returned call Pt transported to OR via bed by Kirill Mims RN and myself
--- NOTE | 2022-02-10 11:21 | EXP.OP.NOTE ---
Date of procedure: 02/10/22 Pre-op Diagnosis:: Nonreassuring heart rate tracing, pelvic disproportion, chronic hypertension, -induced hypertension Post-op Diagnosis:: Nonreassuring heart rate tracing, pelvic disproportion, nuchal cord x2. Chronic hypertension, -induced hypertension Procedure performed:: Primary lower segment transverse section Surgeon:: Gabriel Jay MD Catalyst Operator Gasoline(s):: Dr. Doll HOME SERVICE DEMONSTRATOR:: Srikanth Duncan Anesthesia: epidural Estimated blood loss (mL): 600 Clinical Note:: She is a 21-year-old 1 para 0 at 37+ weeks gestational age. She has had chronically increased blood pressure throughout the . She has had an increase in her blood pressure over the last week and was admitted with persistently elevated blood pressures despite the fact she was on 200 mg twice daily of labetalol. Blood work for PIH was all normal. She was started on Cervidil the evening prior to her delivery and then started on IV oxytocin the morning of February 10, 2022. She began having some persistent decelerations into the 80s. This was shortly after she had her epidural. The heart rate recovered however given the fact that she had not changed her cervix at all overnight we elected perform a primary lower segment transverse section. The risks and benefits of surgery discussed the patient and her family prior to surgery. Operative findings:: She delivered a liveborn female child in the cephalic presentation at 10:43 AM on the morning of February 10, 2022. There was a nuchal cord x2 around the baby and it seemed reasonably tight. The Apgars were at 1 minute 4 at 5 minutes and 7 at 10 minutes. pH was 7.26. Baby otherwise looked normal. Ovaries and tubes look normal. Operative note:: She was taken to the operating room where epidural anesthesia was found be adequate. She was prepped and draped in normal sterile fashion in the supine position. A Live catheter was in the bladder. A Pfannenstiel skin incision was made with knife then carried through to the underlying layer of fascia with cautery. The fascia was opened in the midline with cautery and extended laterally using Holman scissors. [place] clamps were applied to the superior aspect of the fascial incision which was tented up and the underlying rectus muscles dissected off using cautery. The [place] clamps were then applied to the inferior aspect of the fascial incision which in a similar fashion was tented up and the underlying rectus muscles dissected off using cautery. The rectus muscles were then in the midline, the peritoneum identified, and entered bluntly. An Derrek retractor was then inserted into the abdominal cavity. Transverse incision was made through the uterine muscle above the bladder flap to the amnion. This incision was then extended superiorly and inferiorly using the fingers as traction. The amnion was entered sharply with knife. There was clear amniotic fluid. The 's head was then delivered atraumatically. A loose nuchal cord x2 was then reduced. This was followed by the anterior shoulder and the rest of the infant's body atraumatically. The oropharynx and nasopharynx were bulb suctioned. The infant cried but was quite floppy so we handed off the baby to the earring maker. The cord was then doubly clamped and cut. The was then handed off to Dr. Cabello who assigned Apgars of 4 at 1 minute and 4 at 5 minutes and 7 at 10 minutes. We then obtained cord blood as well as cord pH. The pH was 7.26. Using gentle traction on the cord and fundal massage I was able to easily deliver the placenta intact. It had a normal three-vessel cord. The uterus was then cleared of clots and debris . The uterine incision was then closed using running 0 Vicryl suture in a locked fashion. A second layer of the same suture was used to imbricate the first layer. The bladder peritoneum was then closed using running 2-0 Vicryl suture in
--- NOTE | 2022-02-10 11:33 | P.PNANES_ITS ---
[facility] Anesthesia Record Part I Anesthesia Record I Intake, IV Amount: 1,800 Estimated blood loss (mL): 600 Urine output (mL): 250 Blood Pressure: 147/104 SaO2: 98 Pulse Rate: 88 Respiratory Rate: 12 Temperature: 97.4 F Patient is:: Awake and Stable Stable to PACU at:: 11:25
--- NOTE | 2022-02-10 12:12 | PC.NURSE ---
1154-detailed report called to LakshmiRN 1157-pt trasnported to OB room 277 via hospital bed w/juanito rails up and left in care of SCOTT Murillo with bed locked in lowest position, vss, pt stable, family at bedside,additional bedside report given at bedside
--- NOTE | 2022-02-10 12:22 | SUR.OPER ---
late entry..... 1043-viable female born at this time
[2022-02-10 15:47] LABS: Magnesium 4.5 mg/dl (1.6-2.3)
[2022-02-11] VITALS (11 sets, daily range): BP systolic 111–156; BP diastolic 55–87; PULSE 83–104; RESP 16–18; TEMP 36.6–36.8; O2SAT 97–99
--- NOTE | 2022-02-11 06:43 | EXP.ANES.CKL ---
[facility] Disclaimer: The information contained in this section may have been updated after the patient was seen, as this information can be updated by other users. Medical History Anxiety Carpal tunnel syndrome during Essential hypertension Family History No significant family history Social History Smoking Status: Current every day smoker tobacco type: e-cigarettes alcohol intake: current substance use type: denies use current occupational status: employed Travel in the last 8 weeks: None household members: family housing: house [facility] Anesthesia Checklist Patient Identification Patient Identification: Verbal (Name & ) Structural Data Admitted From: Home Planned Operative Procedure/s: bilat salpingectomy Consent for Planned Operative Procedure(s) Verified: Yes NPO Status Verified Time NPO: 00:00 Airway Assessment C-Spine Mobility Assessed: Yes TMJ Mobility Assessed: Yes Dentition: Good Dentition Neurological Assessment Level of Consciousness: Awake, Alert and Appropriate Anesthesia Plan Anesthesia Risk discussed: Yes Anesthesia Plan: Verified ASA Class: II Anesthesia Type: General
[2022-02-11 06:58] LABS: Hematocrit 33.1 % (37.0-47.0); Hemoglobin 10.2 g/dL (12.2-16.2)
[2022-02-11 07:20] LABS: Magnesium 4.4 mg/dl (1.6-2.3)
--- NOTE | 2022-02-11 08:37 | EXP.ACUTE.PN ---
Subjective *Date: 02/11/22 *Time: 08:37 Interval history: She is 1 day from a . She is doing well this morning. She is eating and drinking and ambulating. She is breast-feeding. She is still on magnesium sulfate and will be on this until about noon today. Her blood pressures are in the 130s over 70 range. She is taking labetalol 200 mg twice daily. Medical Exam Vital signs and Labs for Last 24 Hours: Vital Signs Temp Pulse Pulse Pulse Resp BP BP 02/11/22 07:49 98 F 96 H 17 138/73 02/11/22 06:50 83 134/78 02/11/22 05:18 98.0 F 93 H 16 156/87 H 02/11/22 04:18 127/69 02/11/22 03:18 117/62 02/11/22 02:18 126/66 02/11/22 01:18 113/55 L 02/11/22 00:22 122/66 02/10/22 23:19 112/55 L 02/10/22 22:19 108/53 L 02/10/22 21:18 122/79 02/10/22 20:17 98.2 F 85 17 136/74 02/10/22 17:52 18 02/10/22 14:30 93 H 136/68 02/10/22 14:00 87 138/68 02/10/22 13:30 93 H 150/76 H 02/10/22 13:00 93 H 18 147/75 H 02/10/22 12:30 99 H 156/80 H 02/10/22 12:00 88 138/78 02/10/22 10:00 91 H 18 132/68 02/10/22 09:45 87 18 117/61 02/10/22 09:30 85 141/74 H 02/10/22 09:00 90 18 164/86 H 02/10/22 13:40 18 02/10/22 11:55 97.5 F L 87 18 145/89 H 02/10/22 11:45 89 16 160/87 H 02/10/22 11:35 86 16 156/91 H 02/10/22 11:25 97.4 F L 88 12 147/104 H 02/10/22 11:34 97.4 F L 88 12 147/104 H Pulse Ox 02/11/22 07:49 98 02/11/22 06:50 02/11/22 05:18 99 02/11/22 04:18 02/11/22 03:18 02/11/22 02:18 02/11/22 01:18 02/11/22 00:22 02/10/22 23:19 02/10/22 22:19 02/10/22 21:18 02/10/22 20:17 99 02/10/22 17:52 02/10/22 14:30 02/10/22 14:00 02/10/22 13:30 02/10/22 13:00 02/10/22 12:30 02/10/22 12:00 02/10/22 10:00 02/10/22 09:45 02/10/22 09:30 02/10/22 09:00 02/10/22 13:40 02/10/22 11:55 98 02/10/22 11:45 98 02/10/22 11:35 97 02/10/22 11:25 97 02/10/22 11:34 Intake and Output 02/10/22 02/11/22 02/11/22 19:59 03:59 11:59 Intake Total 110 / 110 Output Total 200 / 200 Balance -90 / -90 Intake: Intake, Oral Amount 10 / 10 Intake, Total IV Amount 100 / 100 Oxytocin/Ringers Lactate 30 100 / 100 units In 500 ml @ 3 mls/hr IV . Q25H ONE Rx#:[id number] Output: Output, Urine Amount (Catheter) 200 / 200 Live 200 / 200 Laboratory Results - last 24 hr 02/09/22 15:20: Blood Type O Positive, Antibody Screen Negative, Crossmatch ([facility]) See Detail 02/10/22 10:47: Cord ABG pH 7.26 L 02/10/22 14:09: Magnesium 4.5 H D 02/11/22 06:43: Hgb 10.2 L, Hct 33.1 L 02/11/22 06:43: Magnesium 4.4 H I & O for Labs for Last 24 Hours: Intake & Output 02/08/22 02/09/22 02/10/22 02/11/22 11:59 11:59 11:59 11:59 Intake Total 1800 / 1800 110 / 110 Output Total 200 / 200 Balance 1799 / 1799 -90 / -90 Weight 253 lb Constitutional: Present no acute distress Head: Present atraumatic Neck: Present normal inspection Respiratory: Present normal respiratory effort and able to speak in complete sentences GI: Present normal bowel sounds; Absent distention or tenderness Comments:: Her incision is clean and dry Rectal (female): Present deferred (female): Present deferred Extremities: Present full ROM; Absent calf tenderness Assessment and Plan *Assessment and plan (1) Abnormal heart rate complicating : Status: Acute Category: Medical Code(s): O36.8390 - Maternal care for abnormalities of the heart rate or rhythm, unspecified trimester, not applicable or unspecified (2) Gestational hypertension: Status: Acute Category: Medical Code(s): O13.9 - Gestational [-induced] hypertension without significant proteinuria, unspecified trimester (3) Hypert
[2022-02-12 00:05] VITALS: BP 138/73; PULSE 94; RESP 16; TEMP 36.6
[2022-02-12 04:12] VITALS: BP 140/72; PULSE 89; RESP 18; TEMP 36.5; O2SAT 99
[2022-02-12 08:00] VITALS: BP 134/68; PULSE 78; RESP 18; TEMP 36.7; O2SAT 99
--- NOTE | 2022-02-12 11:26 | P.PN_ITS ---
Subjective *Date: 02/12/22 *Time: 08:30 Interval history: She is doing well today. She is eating and drinking and ambulating. She is breast-feeding. Her lochia is normal. Her pain is well controlled. Medical Exam Vital signs and Labs for Last 24 Hours: Vital Signs Temp Pulse Pulse Pulse Resp BP BP 02/12/22 08:00 98.0 F 78 18 134/68 02/12/22 04:12 97.7 F 89 18 140/72 02/12/22 00:05 97.8 F 94 H 16 138/73 02/11/22 20:32 98.0 F 104 H 18 143/87 H 02/11/22 15:34 98.3 F 92 H 17 137/71 02/11/22 11:45 111/57 L Pulse Ox 02/12/22 08:00 99 02/12/22 04:12 99 02/12/22 00:05 02/11/22 20:32 97 02/11/22 15:34 97 02/11/22 11:45 Intake and Output 02/11/22 02/12/22 02/12/22 19:59 03:59 11:59 Output Total 750 / 750 Balance -750 / -750 Output: Output, Urine Amount 750 / 750 I & O for Labs for Last 24 Hours: Intake & Output 02/09/22 02/10/22 02/11/22 02/12/22 11:59 11:59 11:59 11:59 Intake Total 1800 / 1800 110 / 110 Output Total 200 / 200 750 / 750 Balance 1800 / 1800 -90 / -90 -750 / -750 Weight 253 lb Constitutional: Present no acute distress Head: Present atraumatic Respiratory: Present normal respiratory effort Assessment and Plan *Assessment and plan (1) delivery delivered: Status: Acute Category: Medical Code(s): O82 - Encounter for delivery without indication (2) Abnormal heart rate complicating : Status: Acute Category: Medical Code(s): O36.8390 - Maternal care for abnormalities of the heart rate or rhythm, unspecified trimester, not applicable or unspecified (3) Gestational hypertension: Status: Acute Category: Medical Code(s): O13.9 - Gestational [-induced] hypertension without significant proteinuria, unspecified trimester (4) Anxiety: Status: Acute Category: Medical Code(s): F41.9 - Anxiety disorder, unspecified Plan She continues to do well. We will continue to keep her in hospital until tomorr ow. She should be able to go home tomorrow.
[2022-02-12 19:32] VITALS: BP 143/95; PULSE 90; RESP 18; TEMP 36.7; O2SAT 100
--- NOTE | 2022-02-13 08:53 | EXP.DC.SUM ---
General Admission date:: 02/09/22 Discharge date: 02/13/22 HPI HPI HPI: She is a 21-year-old 1 para 0 at 37 weeks gestational age. She was seen yesterday with increased blood pressure and it seemed to settle on its own. She also has severe anxiety and we thought the blood pressure may be elevated as result of that. Her PI lab work was completely normal. Today she started feeling jittery all day and her blood pressure is slightly elevated today again. She is on labetalol 200 mg twice daily. She did take her dose this morning. Given the fact that she is 37 weeks along and her blood pressure is elevated, we will go ahead and induce her labor. Hospital Course Hospital Course Hospital Course: She was started on magnesium sulfate and Cervidil overnight. She the following morning she had an epidural and began having prolonged decelerations. The decelerations of eventually improved but she had not changed her cervix overnight at all despite the fact that she had been on Cervidil overnight and then had 5 hours of oxytocin. Given the nonreassuring heart rate tracing we elected to perform a primary lower segment transverse section. She delivered a liveborn female child at 10:43 AM on the morning of February 10, 2022. The baby weighed 5 pounds 10 ounces and had Apgars of 4 at 1 minute 4 at 5 minutes and 7 at 10 minutes. She has done well and has remained afebrile throughout hospitalization. She is eating and drinking and ambulating. She is breast-feeding. She has O+ blood, she is well immune and was group B streptococcus negative. She is discharged home to follow-up with Dr. Fox in approximately 2 weeks time. She was given the usual instructions with respect to limiting her activity, driving and sexual activity. She was given instructions with respect to wound care. She will continue with her vitamins and iron. She will take qabk-urr-ducaqdl analgesics and she was given a prescription for Percocet 5/325 number 12 tablets. She will continue with her labetalol 200 mg twice daily. Her condition on discharge is stable and improved. Exam Data for Last 24 hours Vital signs and Labs for Last 24 Hours: Temp Pulse Resp BP Pulse Ox 98.0 F 90 18 143/95 H 100 02/12/22 19:32 02/12/22 19:32 02/12/22 19:32 02/12/22 19:32 02/12/22 19:32 Laboratory Results - last 24 hr 02/09/22 15:20: Crossmatch ([facility]) See Detail I & O for Last 24 hours: Intake & Output 02/10/22 02/11/22 02/12/22 02/13/22 11:59 11:59 11:59 11:59 Intake Total 1800 / 1800 110 / 110 Output Total 200 / 200 750 / 750 Balance 1800 / 1800 -90 / -90 -750 / -750 Weight 253 lb Constitutional Constitutional: no acute distress *Routine HEENT Exam Head: Present normocephalic *Routine Respiratory Exam Respiratory: Present normal respiratory effort Results Data Completed and Pending Labs on day of discharge: Labs from last 24 hours 02/09/22 15:20 Crossmatch ([facility]) See Detail DS: Diagnosis Discharge Diagnosis (1) delivery delivered: Status: Acute (2) Abnormal heart rate complicating : Status: Acute (3) Gestational hypertension: Status: Acute (4) Anxiety: Status: Acute Meds Home Medications and Allergies Home Medications Medication Instructions Recorded Confirmed Type sertraline 100 mg tablet 100 mg PO DAILY Depression 04/13/19 02/10/22 History prenat.vits,jemima,uot-pkkv-tcqvg 1 tab PO DAILY Supplement 07/06/21 02/10/22 History famotidine 20 mg tablet (Pepcid) 20 mg PO DAILY Heartburn 01/17/22 02/10/22 History buspirone 5 mg tablet 5 mg PO BID Anxiety 01/24/22 02/10/22 History labetalol 100 mg tablet 200 mg PO BID Hypertension #60 tabs 02/13/22 02/10/22 Rx oxycodone-acetaminophen 5 mg-325 1 tab PO Q4-6H PRN severe pain. 02/13/22 Rx mg tablet (Percocet) #12 tabs New Prescriptions to Start Prescriptions: oxycodone-acetaminoph
== END 2022-02-13 12:00 | disposition home or self-care (01) | DRG 787 ==
LOC: OBOUT 15:39 → OB 15:39
PROVIDERS: Admitting Provider Nurse Practitioner Obstetrics & Gynecology; PCP Internal Medicine; Visit Provider Nurse Practitioner Obstetrics & Gynecology
PROC: 10D00Z1 Extraction of Products of Conception, Low, Open Approach (ICD-10-PCS; CPT 59514; principal; 2022-02-10 10:00)
DX: O36.8330 Maternal care for abnormalities of the fetal heart rate or rhythm, third trimester, not applicable or unspecified (principal); O10.013 Pre-existing essential hypertension complicating pregnancy, third trimester; O13.4 Gestational [pregnancy-induced] hypertension without significant proteinuria, complicating childbirth; Z3A.37 37 weeks gestation of pregnancy; Z37.0 Single live birth
CPT/HCPCS: 59514; 36415; 59025; 80305; 81001; 82575; 82800; 83735; 84155; 85014; 85018; 85025; 86850; 94761; C9803; G0283; U0003; U0005

== ENCOUNTER 2022-02-15 14:43 | Outpatient (CLI) | payer MEDICAID, SELFPAY ==
--- NOTE | 2022-02-15 15:56 | PC.NURSE ---
15:00- Pt arrived to OB dept with complaints of shakiness and states that her blood pressure at home was 100 diastolic. Serial blood pressures started. Pt reports that Dr. Fox increased her blood pressure and anxiety medication yesterday but she hasn't taken any of it yet because it's not bedtime . 15:04- 151/81, P 106, R 22, T 97.6 F oral 15:15- 148/80, P 93 15:25- 156/86, P 100 15:25- notified of pt's arrival / status. V/U. states that she just saw pt in the office yesterday and increased her meds (blood pressure and anxiety)...V/O received to discharge pt home. Reiterate the importance of taking her medications as prescribed, relax as much as possible, and try different calming techniques. She is also to call the office Friday to get an appointment to see her in the office. R/V. 15:48- 133/75, P 97 Pt given discharge instructions. V/U. States I can't believe how calm I am now and how good my blood pressures are I don't know what happens to me . Pt given discharge instructions on hypertension, anxiety and panic attacks. Pt verbalized understanding of.f
== END 2022-02-15 15:50 | disposition home or self-care (01) ==
LOC: OBOUT 14:45 → OB 14:53
PROVIDERS: PCP Internal Medicine; Visit Provider Obstetrics & Gynecology
DX: Z39.2 Encounter for routine postpartum follow-up (principal)

== ENCOUNTER → 2022-04-17 13:39 | Outpatient (CLI) | payer MEDICAID, SELFPAY ==
--- NOTE | 2022-04-17 13:39 | CA_ITS ---
APPROVED REPORT EXAM: Comprehensive 2D, Doppler, and color-flow Echocardiogram Supervisor [employer] Construction: Lazara Escalante RVT Ht: 5 ft 3 in Wt: 224lbs BSA: 2.03 BP: 135/78 mmHg Indications: 8 WKS ,HTN,SMOKER,GERD 2D Dimensions LVOT 2.22 cm (M/F) 1.5-2.5 LA Volume 20.90 mL LA Volume Index 10.30 mL/m2 (M/F) 16-34 M-Mode Dimensions RVDd 2.68 cm (0.9-2.6) LA Diam 3.13 cm (1.9-4.0) LVDd 4.52 cm (3.5-5.7) Ao Diam 2.56 cm (2.0-3.7) LVDs 2.78 cm (3.5-5.7) IVSd 0.80 cm (0.6-1.1) PWd 0.87 cm (0.6-1.1) EF (Teich) 69.00% FS 38.50% EDV (Teich) 93.40 mL TAPSE 2.96 (<1.7) ESV (Teich) 29.00 mL LV Diastology E Decel Time 230.00 (160-240 msec) E/A Ratio 1.4 MED E' 10.20 (< 7 cm/sec) E'/MED E' Ratio 7.62 (>14) LAT E' 15.30 (<10 cm/sec) E/LAT E' Ratio 5.08 (>14) Aortic Valve AO Peak GR. 7.00 mmHg Mitral Valve MV E Max Raj. 78.00 (40-130 cm/s) MV A Velocity 54.00 (40-130 cm/s) E/A Ratio 1.44 MV Decel. Time 230.00 (160-240 ms) MV PHT 67.00 ms Pulmonary Valve PV Peak Velocity 69.00 (50-150 cm/s) Tricuspid Valve TR P. Velocity 267.00 cm/s RAP Estimate 10.00 mmHg RVSP 38.50 mmHg Left Ventricle Left atrium is normal size left ventricle is normal size, estimated ejection fraction 55% with no regional wall motion abnormality, diastolic parameters are within normal range. Right Ventricle Right atrium and left ventricular normal size and contractility. Aortic Valve Aortic valve is grossly normal, there is no aortic stenosis aortic insufficiency. Mitral Valve Mitral valve is grossly normal, there is no mitral stenosis, there is trace mitral regurgitation. Tricuspid Valve Tricuspid valve grossly normal, there is trace tricuspid regurgitation. Tricuspid regurgitation jet velocity is inadequate for calculation of the right ventricular systolic pressure. Pulmonic Valve Pulmonic valve is poorly visualized. Great Vessels Aortic root is normal size. Inferior vena cava is normal size with normal inspiratory collapse. Pericardium No significant pericardial effusion noted. Conclusion 1. Normal left ventricular size with a left ventricular systolic function, estimated ejection fraction 55% with no regional wall motion abnormality, diastolic parameters are within normal range. 2. Trace mitral and tricuspid regurgitation. 3. No significant pericardial effusion noted. 4. Inferior vena cava is normal size with normal inspiratory collapse. Electronically signed by : Luis Gray MD 04/18/2022 05:28:42
== END ==
PROVIDERS: PCP Internal Medicine; Visit Provider Nurse Practitioner Family
DX: I10 Essential (primary) hypertension (principal); R94.31 Abnormal electrocardiogram [ECG] [EKG]; Z39.2 Encounter for routine postpartum follow-up
CPT/HCPCS: 93306

== ENCOUNTER → 2022-04-23 10:07 | Outpatient (CLI) | payer MEDICAID, SELFPAY | PROVIDERS: PCP Internal Medicine; Visit Provider Physician Assistant | DX: R42 Dizziness and giddiness (principal); I10 Essential (primary) hypertension | CPT/HCPCS: 93225 ==

== ENCOUNTER 2022-05-04 19:05 | Emergency (ER) | payer MEDICAID, SELFPAY ==
[2022-05-04 19:06] VITALS: BP 131/68; PULSE 70; RESP 17; TEMP 36.6; O2SAT 97; BMI 39.6
[2022-05-04 20:03] LABS: Microscopic, Urine URINE MICROSCOPIC (MICROSCOPIC)
[2022-05-04 20:05] LABS: Appearance,Urine CLEAR (Clear); Bilirubin,Urine Negative (Negative); Blood, Urine Negative (Negative); Color,Urine YELLOW (Yellow); Glucose,Urine (UA) Negative (Negative); Ketones,Urine Negative (Negative); Leukocyte Esterase,Urine Negative (Negative); Nitrate,Urine Negative (Negative); Protein,Urine Negative (Negative); Urobilinogen,Urine 0.2 EU/dl (0.2)
[2022-05-04 20:06] LABS: Urine Pregnancy, HCG Qual. Negative (Negative)
--- NOTE | 2022-05-04 20:06 | XR_ITS ---
PROCEDURE INFORMATION: Exam: XR Chest Exam date and time: 05/04/2022 8:11 PM Age: 21 years old Clinical indication: Pain; Chest pressure TECHNIQUE: Imaging protocol: Radiologic exam of the chest. Views: 2 views. COMPARISON: CR XR CHEST 2V 03/27/2021 8:23 AM FINDINGS: Lungs: Unremarkable. No consolidation. Pleural spaces: Unremarkable. No pleural effusion. No pneumothorax. Heart/Mediastinum: Unremarkable. No cardiomegaly. Bones/joints: Unremarkable. IMPRESSION: No acute findings.
--- NOTE | 2022-05-04 20:09 | HMH.EDGENADL ---
Discharge Plan Disposition Patient Disposition: Home, Self-Care Chief Complaint: PAIN Prescriptions Prescriptions: No Action bisoprolol fumarate 10 mg tablet 10 mg PO DAILY Qty: 90 1RF venlafaxine [Effexor XR] 37.5 mg capsule,extended release 24hr 37.5 mg PO DAILY Qty: 30 2RF buspirone 10 mg tablet 5 mg PO DAILY Label Comments: Patient states taking 1/2 tab norethindrone (contraceptive) 0.35 mg tablet 0.35 mg PO DAILY Qty: 84 3RF Referrals Follow up/Referrals: Donald Munoz MD [Primary Care Provider] - See instructions Clinical Impressions Clinical Impression: Thyroiditis in mother affecting childbirth Discharge ED Provider: Kerry (ED)Jim General Adult HPI General Chief complaint: PAIN Stated complaint: back and neck pain Time Seen by Provider: 05/04/22 20:09 Mode of Arrival: Family Vehicle Source of Information: Patient, Significant Other and Medical Record Limitations: No Limitations Description of Symptoms (Recalled from ER Triage Doc. by RN): Pt c/o several areas of pain that began 2 days ago. She reports she has a tender & swollen area to the R side of her throat that feels like it is throbbing and the pain radiates up to her R jaw and R side of head. She also reports burning painful sensation to her upper back along both sides of her spine. Pt is nearing 3 mn post-, delivery d/t pre-eclampsia. Since delivery, pt has seen Cardiology and OBGYN, had an echo & 48 hr holter monitor. Pt self reports to be a hypochondriac and just not sure what's going on with my nerves . Denies any fever, chills, n/v/d, or SOA. Denies any dyspnea. She is on a oral contracenptive. No known hx of PE or DVTs. History of Present Illness HPI narrative: pain to rt ant neck rt side over the last 2 days with rad to rt jaw - no fever or rash - also has mid -thoracic pain upper back no sob Onset (ago): day(s) Location: neck Severity: moderate Associated symptoms: denies other symptoms Related Data Home Medications Medication Instructions Recorded Confirmed buspirone 10 mg tablet 5 mg PO DAILY 04/10/22 04/25/22 Previous Rx's Medication Instructions Recorded norethindrone (contraceptive) 0.35 0.35 mg PO DAILY #84 tabs 04/09/22 mg tablet bisoprolol fumarate 10 mg tablet 10 mg PO DAILY #90 tabs 04/10/22 venlafaxine 37.5 mg 37.5 mg PO DAILY #30 caps 04/25/22 capsule,extended release 24 hr (Effexor XR) Allergies Allergy/AdvReac Type Severity Reaction Status Date / Time doxylamine AdvReac Severe Shakiness Verified 04/25/22 14:17 [From [facility] (doxylamine)] [facility] Disclaimer: The information contained in this section may have been updated after the patient was seen, as this information can be updated by other users. Medical History (Updated 05/04/22 @ 22:07 by Jim Payne (ED)MD) Abnormal electrocardiogram [ECG] [EKG] Abnormal heart rate complicating Anxiety Carpal tunnel syndrome during Depression Essential hypertension GERD (gastroesophageal reflux disease) Hypertension Family History Other No significant family history Social History Smoking Status: Current every day smoker tobacco type: e-cigarettes alcohol intake: current substance use type: denies use current occupational status: employed Travel in the last 8 weeks: None household members: family housing: house ROS Obtained: Yes All systems reviewed & no additional complaints except as documented Physical Exam General General appearance: alert Head Head exam: normocephalic Eye Eye exam: Present PERRL and EOMI; Absent scleral icterus ENT ENT exam: Present normal oropharynx, mucous membranes moist and TM's normal bilaterally Neck Neck exam: Present trachea midline and tenderness (possible rt thyroid ) Respiratory Res
[2022-05-04 20:11] LABS: Basophils # 0.2 K/mm3 (0-0.2); Basophils % 1.4 % (0.1-2.0); Eosinophils # 0.4 K/mm3 (0.0-0.4); Hematocrit 36.2 % (37.0-47.0); Hemoglobin 11.6 g/dL (12.2-16.2); Lymphocytes # 4.1 K/mm3 (0.7-4.5); Lymphocytes % 38.9 % (10-50); Mean Corpuscular HGB Conc 32.1 g/dL (31.8-35.4); Mean Corpuscular Hemoglobin 24.6 pg (27.0-31.2); Mean Corpuscular Volume 76.6 fl (81-99); Mean Platelet Volume 7.7 fl (7.4-10.4); Monocytes # 0.5 K/mm3 (0.1-1.0); Monocytes % 4.4 % (1.7-9.3); Neutrophils # 5.4 K/mm3 (1.8-7.8); Neutrophils % 51.2 % (37.0-80.0); Platelet Count 438 K/mm3 (142-424); Red Blood Count 4.72 M/mm3 (4.20-5.40); Red Cell Distribution Width 16.1 % (11.5-17.5); White Blood Count 10.6 K/mm3 (4.8-10.8)
[2022-05-04 20:20] LABS: Alanine Aminotransferase 21 U/L (12-78); Albumin Level 4.1 g/dl (3.5-5.0); Albumin/Globulin Ratio 1.2 (1.1-1.8); Alkaline Phosphatase 108 U/L (38-126); Anion Gap 4.9 mEq/L (5-15); Aspartate Amino Transferase 28 U/L (14-36); Bilirubin,Total 0.5 mg/dl (0.2-1.3); Blood Urea Nitrogen 9 mg/dl (7-17); Calcium 9.2 mg/dl (8.4-10.2); Carbon Dioxide 30 mmol/L (22.0-30.0); Chloride 106 mmol/L (98-107); Creatinine Clearance Estimated 130 mL/min (50-200); Estimated Glomerular Filt Rate 63 ml/min (>60); GFR (African American) 76 ML/MIN (>60); Globulin 3.4 g/dL (1.3-3.2); Glucose 113 mg/dl (74-100); Potassium 3.9 mmoL/L (3.5-5.1); Sodium 137 mmol/L (136-145); Total Protein,Serum 7.5 g/dl (6.3-8.2)
[2022-05-04 20:25] LABS: C-Reactive Protein 12.9 mg/L (0-4)
[2022-05-04 20:29] LABS: Coronavirus 19, PCR Not Detected (NotDetected); Influenza A, PCR Not Detected (NotDetected); Influenza B, PCR Not Detected (NotDetected)
[2022-05-04 20:39] LABS: Procalcitonin < 0.030 ng/mL (0.0-2.0)
[2022-05-04 20:41] LABS: Strep Scrn Group A (Rapid) Negative (Negative)
[2022-05-04 20:48] LABS: Erythrocyte Sedimentation Rate 44 mm/hr (0-20)
[2022-05-04 22:44] VITALS: BP 128/62; PULSE 68; RESP 18; TEMP 36.6; O2SAT 99
== END 2022-05-04 22:25 | disposition home or self-care (01) ==
PROVIDERS: Emergency Provider Emergency Medicine; PCP Internal Medicine
DX: E06.9 Thyroiditis, unspecified (principal); Z86.79 Personal history of other diseases of the circulatory system; F41.8 Other specified anxiety disorders; I10 Essential (primary) hypertension; K21.9 Gastro-esophageal reflux disease without esophagitis; F17.290 Nicotine dependence, other tobacco product, uncomplicated; Z20.822 Contact with and (suspected) exposure to COVID-19
CPT/HCPCS: 71046; 80053; 81001; 81025; 84145; 84436; 84443; 85025; 85651; 86140; 87430; 99285; C9803; U0003; U0005

== ENCOUNTER → 2022-08-09 07:55 | Outpatient (CLI) | payer MEDICAID, SELFPAY ==
[2022-08-09 08:46] LABS: Basophils # 0.1 K/mm3 (0-0.2); Eosinophils # 0.4 K/mm3 (0.0-0.4); Eosinophils % 4.1 % (0.1-12.0); Hematocrit 39.8 % (37.0-47.0); Hemoglobin 12.5 g/dL (12.2-16.2); Lymphocytes # 4.3 K/mm3 (0.7-4.5); Lymphocytes % 43.8 % (10-50); Mean Corpuscular HGB Conc 31.3 g/dL (31.8-35.4); Mean Corpuscular Hemoglobin 24.9 pg (27.0-31.2); Mean Corpuscular Volume 79.6 fl (81-99); Mean Platelet Volume 7.4 fl (7.4-10.4); Monocytes # 0.5 K/mm3 (0.1-1.0); Neutrophils # 4.5 K/mm3 (1.8-7.8); Neutrophils % 46.2 % (37.0-80.0); Platelet Count 417 K/mm3 (142-424); Red Cell Distribution Width 16.2 % (11.5-17.5); White Blood Count 9.7 K/mm3 (4.8-10.8)
[2022-08-09 09:29] LABS: Alanine Aminotransferase 20 U/L (12-78); Albumin/Globulin Ratio 1.2 (1.1-1.8); Alkaline Phosphatase 113 U/L (38-126); Anion Gap 16.6 mEq/L (5-15); Aspartate Amino Transferase 26 U/L (14-36); Bilirubin,Total 0.4 mg/dl (0.2-1.3); Blood Urea Nitrogen 10 mg/dl (7-17); Calcium 9.6 mg/dl (8.4-10.2); Carbon Dioxide 26 mmol/L (22.0-30.0); Chloride 102 mmol/L (98-107); Estimated Glomerular Filt Rate 105 ml/min (>60); GFR (African American) 127 ML/MIN (>60); Globulin 3.4 g/dL (1.3-3.2); Glucose 83 mg/dl (74-100); Potassium 4.6 mmoL/L (3.5-5.1); Sodium 140 mmol/L (136-145); Total Protein,Serum 7.4 g/dl (6.3-8.2)
[2022-08-09 10:00] LABS: Thyroid Stimulating Hormone 2.66 uIU/mL (0.465-4.68)
[2022-08-09 10:36] LABS: Vitamin B12 496 pg/mL (239-931)
[2022-08-09 10:39] LABS: Folate 8.06 ng/mL
--- NOTE | 2022-08-09 15:44 | MR_ITS ---
PROCEDURE INFORMATION: Exam: MR Head Without and With Contrast Exam date and time: 08/09/2022 3:48 PM Age: 22 years old Clinical indication: Dizziness; Additional info: Vertigo, tinnitus, headache. Dizziness since February 10 2022 after giving to her child , PT had epidural and . Head feels in a fog all the time and PT is light headed TECHNIQUE: Imaging protocol: Magnetic resonance imaging of the head without and with contrast. Contrast material: PROHANCE; Contrast volume: 22 ml; Contrast route: IV; COMPARISON: HEADWO CT head/brain wo con 06/25/2017 11:42 AM FINDINGS: Brain: Normal. No acute infarct. No hemorrhage. No significant white matter disease. No edema. Cerebral ventricles: Normal. No ventriculomegaly. Bones/joints: Unremarkable. Paranasal sinuses: Normal as visualized. No acute sinusitis. Mastoid air cells: Normal as visualized. No mastoid effusion. Orbital cavities: Unremarkable. Lymph nodes: Nonspecific lymph nodes in visualized neck and subcutaneous soft tissue in occipital region. Soft tissues: Unremarkable. IMPRESSION: No acute intracranial findings by MRI criteria. Nonspecific neck lymph nodes.
[2022-08-10 11:14] LABS: Prolactin 11.3 ng/mL (4.8-23.3); Triiodothyronine (T3) Free 3.9 pg/mL (2.0-4.4)
== END ==
PROVIDERS: PCP Internal Medicine; Visit Provider Specialist
DX: R42 Dizziness and giddiness (principal); G43.909 Migraine, unspecified, not intractable, without status migrainosus; R73.9 Hyperglycemia, unspecified
CPT/HCPCS: 36415; 70553; 80053; 82607; 82746; 84146; 84439; 84443; 84481; 85025; A9576

== ENCOUNTER → 2022-11-06 15:42 | Outpatient (CLI) | payer MEDICAID, SELFPAY ==
[2022-11-06 14:57] LABS: Adenovirus,PCR Not Detected (NotDetected); Bordetella Pertussis Not Detected (NotDetected); Chlamydophila Pneumoniae, PCR Not Detected (NotDetected); Coronavirus 19, PCR Not Detected (NotDetected); Coronavirus 229E Not Detected (NotDetected); Coronavirus NL63 Not Detected (NotDetected); Coronavirus OC43 Not Detected (NotDetected); Coronovirus HKU1,PCR Not Detected (NotDetected); Human Metapneumovirus Not Detected (NotDetected); Influenza A, PCR Not Detected (NotDetected); Influenza AH1, 2009 Not Detected (NotDetected); Influenza AH1, PCR Not Detected (NotDetected); Influenza AH3,PCR Not Detected (NotDetected); Influenza B, PCR Not Detected (NotDetected); Mycoplasma Pneumoniae, PCR Not Detected (NotDetected); Parainfluenza 1, PCR Not Detected (NotDetected); Parainfluenza 2, PCR Not Detected (NotDetected); Parainfluenza 3, PCR Not Detected (NotDetected); Parainfluenza 4, PCR Not Detected (NotDetected); Respiratory Syncytial Virus Not Detected (NotDetected)
[2022-11-07 03:21] LABS: Rhinovirus/Enterovirus Detected (NotDetected)
== END ==
LOC: LAB.DROPOF 15:42
PROVIDERS: PCP Internal Medicine; Visit Provider Internal Medicine
DX: R05.9 Cough, unspecified (principal); B34.1 Enterovirus infection, unspecified
CPT/HCPCS: 87581; 87632; 87798

== ENCOUNTER → 2022-11-12 13:01 | Outpatient (CLI) | payer MEDICAID, SELFPAY ==
[2022-11-12 14:58] VITALS: BMI 43.7
== END ==
PROVIDERS: PCP Internal Medicine; Visit Provider Specialist
DX: Z71.3 Dietary counseling and surveillance (principal); E66.9 Obesity, unspecified; Z68.41 Body mass index [BMI] 40.0-44.9, adult

== ENCOUNTER 2023-01-12 19:39 | Emergency (ER) | payer MEDICAID, SELFPAY ==
[2023-01-12] VITALS (8 sets, daily range): BP systolic 103–160; BP diastolic 57–113; PULSE 72–110; RESP 17–18; TEMP 36.7; O2SAT 95–98; BMI 43.0
--- NOTE | 2023-01-12 19:53 | HMH.EDGENADL ---
Discharge Plan Disposition Patient Disposition: Home, Self-Care Condition: Good Prescriptions Prescriptions: No Action norgestimate-ethinyl estradiol [Sprintec (28)] 0.25-35 mg-mcg tablet 1 tab PO DAILY Qty: 28 12RF Nurtec ODT 75 mg tablet,disintegrating 75 mg PO Q OTHER DAY MDD 75 mg PRN (Reason: migraine headache) Qty: 10 5RF bisoprolol fumarate 5 mg tablet 5 mg PO DAILY sertraline 100 mg tablet 200 mg PO DAILY hydroxyzine HCl 10 mg tablet 10 mg PO TID PRN benzonatate 100 mg capsule 100 mg PO TID PRN (Reason: cough) Qty: 20 0RF Referrals Follow up/Referrals: Donald Munoz MD [Primary Care Provider] - See instructions Activity Restrictions/Add. Instructions Additional Instructions/Restrictions: As discussed, your visual acuity is reassuring and I am glad your symptoms have resolved at this time, particularly your vision complaints. That being said my suspicion at this time is for a condition called idiopathic intracranial hypertension, based off of what I am seeing on my optic ultrasound and the constellation of your symptoms as well as your previous eye doctor appointments showing some of similar findings to what I saw on my ultrasound. If this condition is left untreated it can be threatening to your vision. I recommend you see an feed weigher soon as possible to confirm my findings and follow-up with a neurologist. Please return with any new or worsening symptoms. As discussed, we have elected to not proceed with a lumbar puncture at this time which would be the definitive test as well as a therapeutic treatment. Clinical Impressions Clinical Impression: Papilledema Headache Qualifiers: Headache type: other complicated headache syndrome Qualified Code(s): G44.59 - Other complicated headache syndrome Discharge ED Provider: Wilmer Barragan General Adult HPI General Chief complaint: Eye Problems Stated complaint: losing vision in LT eye Time Seen by Provider: 01/12/23 19:42 History of Present Illness HPI narrative: The patient presents with a chief complaint of sudden onset of bright, fuzzy lines of light in their vision, mainly in one eye but still noticeable when covering the other eye. The patient reports that the visual disturbance is located in a blind spot, but not a true blind spot, and is very bright and in the middle of their vision. The patient denies any pain associated with the visual symptoms and has no history of similar episodes. The patient has a history of migraines and was prescribed Nertec by a neurologist for episodes. The patient had an MRI in the summertime due to headaches and dizziness following the of their child, which came back normal. The neurologist attributed the headaches to migraines, blood pressure, and the need for weight loss. The patient reports having headaches every other day, which feel like tension headaches, and dizziness has improved. The patient denies any fever, numbness, or tingling. They report chronic neck pain that extends to the back of their head, which began after their . Their child is currently 11 months old. The patient's labs from the neurology visit showed mild anemia, but no other abnormalities. The patient takes Sertraline 200 mg, Misoprostol 5 mg, and blood pressure medications daily. They have no known eye problems but are considered at risk for glaucoma due to high blood pressure. Related Data Home Medications Medication Instructions Recorded Confirmed bisoprolol fumarate 5 mg tablet 5 mg PO DAILY 12/09/22 12/09/22 hydroxyzine HCl 10 mg tablet 10 mg PO TID PRN 12/09/22 12/09/22 sertraline 100 mg tablet 200 mg PO DAILY 12/09/22 Previous Rx's Medication Instructions Recorded norgestimate 0.25 mg-ethinyl 1 tab PO DAILY #28 tabs 07/24/22 estradiol 35 mcg tablet (Sprintec (28)) rimegepant 75 mg disintegrating 75 mg PO Q OTHER DAY PRN migraine 10/28/22 tablet (Nurtec ODT) headache #10 tabs benzonatate
--- NOTE | 2023-01-12 19:55 | PC.NURSE ---
Notified ER provider of patient's sudden vision changes and vital signs at this time.
[2023-01-12 20:41] LABS: Basophils # 0.1 K/mm3 (0-0.2); Eosinophils # 0.5 K/mm3 (0.0-0.4); Eosinophils % 4.2 % (0.1-12.0); Hematocrit 40.2 % (37.0-47.0); Hemoglobin 13.3 g/dL (12.2-16.2); Lymphocytes % 42.8 % (10-50); Mean Corpuscular Hemoglobin 27.1 pg (27.0-31.2); Mean Platelet Volume 7.3 fl (7.4-10.4); Monocytes # 0.6 K/mm3 (0.1-1.0); Neutrophils # 5.5 K/mm3 (1.8-7.8); Platelet Count 364 K/mm3 (142-424); Red Blood Count 4.91 M/mm3 (4.20-5.40); Red Cell Distribution Width 16.2 % (11.5-17.5); White Blood Count 11.6 K/mm3 (4.8-10.8)
[2023-01-12 20:46] LABS: Chloride 102 mmol/L (98-107); Potassium 3.8 mmoL/L (3.5-5.1); Sodium 138 mmol/L (136-145)
[2023-01-12 20:49] LABS: Alanine Aminotransferase 24 U/L (12-78); Albumin Level 4.5 g/dl (3.5-5.0); Albumin/Globulin Ratio 1.1 (1.1-1.8); Alkaline Phosphatase 91 U/L (38-126); Anion Gap 10.8 mEq/L (5-15); Aspartate Amino Transferase 34 U/L (14-36); Bilirubin,Total 0.3 mg/dl (0.2-1.3); Blood Urea Nitrogen 13 mg/dl (7-17); Calcium 9.7 mg/dl (8.4-10.2); Carbon Dioxide 29 mmol/L (22.0-30.0); Creatinine Clearance Estimated 104 mL/min (50-200); Estimated Glomerular Filt Rate 105 ml/min (>60); GFR (African American) 127 ML/MIN (>60); Globulin 4.1 g/dL (1.3-3.2); Glucose 102 mg/dl (74-100); Magnesium 1.8 mg/dl (1.6-2.3); Total Protein,Serum 8.6 g/dl (6.3-8.2)
[2023-01-12 20:50] LABS: Phosphorous 4.3 mg/dl (2.5-4.5)
[2023-01-12 20:53] LABS: HCG Qualitative, Serum Negative (Negative)
[2023-01-12 20:54] LABS: Barbiturates Screen,Urine Negative ng/ml (<200)
[2023-01-12 20:55] LABS: Benzodiazepines Screen,Urine Negative ng/ml (<200)
[2023-01-12 20:56] LABS: Amphetamine/Metha Screen,Urine Negative ng/ml (<1000); Cannabinoid Screen,Urine Negative ng/ml (<50)
[2023-01-12 20:57] LABS: Cocaine Screen,Urine Negative ng/ml (<300); Methadone Screen,Urine Negative ng/ml (<300)
[2023-01-12 20:58] LABS: Opiate Screen,Urine Negative ng/ml (<300)
[2023-01-12 20:59] LABS: Phencyclidine Screen,Urine Negative ng/ml (<25)
--- NOTE | 2023-01-12 21:25 | CT_ITS ---
PROCEDURE INFORMATION: Exam: CT Head Without Contrast Exam date and time: 01/12/2023 10:45 PM Age: 22 years old Clinical indication: Other: Intracranial hypertension; Additional info: Clinical concern for intracranial hypertension TECHNIQUE: Imaging protocol: Computed tomography of the head without contrast. Radiation optimization: All CT scans at this facility use at least one of these dose optimization techniques: automated exposure control; mA and/or kV adjustment per patient size (includes targeted exams where dose is matched to clinical indication); or iterative reconstruction. REPORTING DATA: Count of CT and Cardiac NM exams in prior 12 months: This patient has received 0 known CTs and 0 known cardiac nuclear medicine studies in the 12 months prior to the current study. COMPARISON: MR HEAD/BRAIN WO/W CON 08/09/2022 3:48 PM FINDINGS: Brain: Normal. No hemorrhage. Unremarkable white matter. No mass effect. Cerebral ventricles: No ventriculomegaly. Paranasal sinuses: Visualized sinuses are unremarkable. No fluid levels. Mastoid air cells: Visualized mastoid air cells are well aerated. Bones/joints: Unremarkable. No acute fracture. Soft tissues: Unremarkable. IMPRESSION: No acute intracranial abnormality.
[2023-01-12 21:26] LABS: Thyroid Stimulating Hormone 4.69 uIU/mL (0.465-4.68)
[2023-01-12 21:40] LABS: Free T4 (Free Thyroxine) 0.85 ng/dl (0.78-2.19)
--- NOTE | 2023-01-12 21:49 | PC.NURSE ---
Visual acuity performed. Unable to complete without glasses. Corrected: Left 20/20 Right 20/25 Both 20/20
== END 2023-01-12 22:56 | disposition home or self-care (01) ==
PROVIDERS: Emergency Provider Emergency Medicine; PCP Internal Medicine
DX: G44.59 Other complicated headache syndrome (principal); H47.10 Unspecified papilledema; F17.210 Nicotine dependence, cigarettes, uncomplicated; I10 Essential (primary) hypertension; K21.9 Gastro-esophageal reflux disease without esophagitis
CPT/HCPCS: 70450; 80053; 80305; 83735; 84100; 84439; 84443; 84703; 85025; 96361; 96365; 96375; 99285; J3475

== ENCOUNTER → 2023-01-20 10:59 | Outpatient (CLI) | payer MEDICAID, SELFPAY | PROVIDERS: PCP Internal Medicine; Visit Provider Nurse Practitioner Family | DX: G47.30 Sleep apnea, unspecified (principal); G43.809 Other migraine, not intractable, without status migrainosus; R06.83 Snoring; I10 Essential (primary) hypertension; E66.9 Obesity, unspecified; Z68.41 Body mass index [BMI] 40.0-44.9, adult | CPT/HCPCS: G0399 ==

== ENCOUNTER 2023-03-07 09:33 | Emergency (ER) | payer MEDICAID, SELFPAY ==
[2023-03-07 09:40] VITALS: BP 142/71; PULSE 85; RESP 20; TEMP 36.8; O2SAT 96; BMI 43.5
--- NOTE | 2023-03-07 09:53 | EXP.UTC ---
Discharge Plan Disposition Patient Disposition: Home, Self-Care Condition: Good Prescriptions Prescriptions: New phenazopyridine 200 mg Tablet 200 mg PO TID 2 Days Qty: 6 0RF sulfamethoxazole-trimethoprim [Bactrim DS] 800-160 mg Tablet 1 tab PO BID Qty: 14 0RF ondansetron 4 mg Tablet,Disintegrating 4 mg PO Q8H PRN (Reason: Nausea) Qty: 12 0RF No Action bisoprolol fumarate 5 mg tablet 5 mg PO DAILY sertraline 100 mg tablet 200 mg PO DAILY Referrals Follow up/Referrals: Donald Munoz MD [Primary Care Provider] - See instructions Activity Restrictions/Add. Instructions Additional Instructions/Restrictions: Drink plenty of fluids. Take tylenol or ibuprofen for pain or fever. Take the medications as directed. Follow up with your regular doctor. GO TO THE ER FOR ANY WORSENING SYMPTOMS The pyridium will make your urine turn orange, this is an expected side effect. It will stain your clothes if it comes into contact with them. We will culture the urine. That will tell what bacteria is causing your infection and which antibiotics will treat it best. Sometimes the first antibiotic we prescribe turns out to not work against different bacteria. So, make sure you follow up within 3 days if you are not getting better. Clinical Impressions Clinical Impression: UTI (urinary tract infection) Instructions Patient Instructions: Urinary Tract Infection, Urine Culture, DI for Urinary Tract Infection (UTI), Phenazopyridine Discharge ED Provider: Edd Mejia [facility] General Stated complaint: abdominal pain Time Seen by Provider: 03/07/23 09:53 History of Present Illness Provider Complaint: She states that for the past 2 days she has had dysuria, urinary frequency, and lower back discomfort. Related Data Home Medications Medication Instructions Recorded Confirmed bisoprolol fumarate 5 mg tablet 5 mg PO DAILY 12/09/22 03/07/23 sertraline 100 mg tablet 200 mg PO DAILY 12/09/22 03/07/23 Previous Rx's Medication Instructions Recorded ondansetron 4 mg disintegrating 4 mg PO Q8H PRN Nausea #12 tabs 03/07/23 tablet phenazopyridine 200 mg tablet 200 mg PO TID 2 days #6 tabs 03/07/23 sulfamethoxazole 800 1 tab PO BID #14 tabs 03/07/23 mg-trimethoprim 160 mg tablet (Bactrim DS) Allergies Allergy/AdvReac Type Severity Reaction Status Date / Time doxylamine AdvReac Severe Shakiness Verified 02/19/23 14:03 [From [facility] (doxylamine)] [facility] Disclaimer: The information contained in this section may have been updated after the patient was seen, as this information can be updated by other users. Medical History Abnormal electrocardiogram [ECG] [EKG] Abnormal heart rate complicating Anxiety Carpal tunnel syndrome during Depression Essential hypertension GERD (gastroesophageal reflux disease) Hypertension Tinnitus Vertigo Vestibular migraine Surgical History History of Family History Other No significant family history Social History Smoking Status: Current every day smoker tobacco type: e-cigarettes alcohol intake: current substance use type: denies use current occupational status: employed Travel in the last 8 weeks: None household members: family housing: house marital status: single ROS Obtained: Yes All systems reviewed & no additional complaints except as documented Constitutional Constitutional: Reports system reviewed and no additional complaints, except as documented, Denies chills and Denies fever(s) Eyes Eyes: Denies eye discharge ENT Ears, Nose, Mouth, and Throat: Denies dysphagia, Denies sore throat and Denies throat swelling Cardiovascular Cardiovascular: Denies chest pain and Denies dyspnea Respiratory Respiratory: Denies chest congestion, Denies cough and Denies dyspnea Gastrointestinal Gastrointestingal: Denies abdominal pain, constipation, diarrhea, dysphagia, nausea or vomiting Genitourinary Female Genitourinary: Reports as per HPI, Reports dysuria, Reports urinary frequency, Denies urinary incontinence, Reports urinary hesitancy and Reports urinary urgency Musculoskeletal Musculoskeletal: Denies arthralgias and Reports back pain Integumentary/Breasts Skin/Breast: Denies rash Neurologic Neurologic: Denies paresthesias Allergic/Immunologic Allergic/Immunologic: Denies throat swelling Physical Exam General General appearance: alert and in no apparent distress Head Head exam: atraumatic and normocephalic Eye Eye exam: Present normal appearance, PERRL and EOMI ENT ENT exam: Present normal exam, mucous membranes moist, TM's normal bilaterally and normal external ear exam Neck Neck exam: Present normal inspection, full ROM and trachea midline; Absent tenderness, meningismus or lymphadenopathy Chest Chest inspection: Present normal inspection and symmetric chest wall rise; Absent tenderness Respiratory Respiratory exam: Present normal lung sounds bilaterally; Absent respiratory distress, wheezes or stridor Cardiovascular Cardiovascular exam: Present regular rate, normal rhythm and normal heart sounds Abdominal Exam Abdominal exam: Present soft and normal bowel sounds; Absent distention, tenderness, guarding, rebound, rigidity, incision, psoas sign, obturator sign, heel tap sign, Holly's sign, Rovsing's sign or tenderness at McBurney's Point Extremities Exam Extremities exam: Present normal inspection, full ROM and normal capillary refill; Absent tenderness, edema, joint swelling, calf tenderness or cyanosis Back Exam Back exam: Present normal inspection and full ROM; Absent tenderness, CVA tenderness (R) or CVA tenderness (L) Neurological Exam Neurological exam: Present alert, oriented X3 and normal gait Psychiatric Psychiatric exam: Present normal affect and normal mood Skin Skin exam: Present warm, dry, intact and normal color Lymphatic Lymphatic Findings: no adenopathy Medical Decision Making Medical Records Medical records reviewed: No I reviewed the patient's medical records. Jarett Inquiry Pt receiving controlled substance: No Lab Data Lab results reviewed: Yes I reviewed the patient's lab results.
[2023-03-07 09:59] LABS: Apearance,Urine Cloudy (Clear); Bilirubin,Urine Negative (Negative); Blood, Urine 3+ (Negative); Color,Urine Yellow (Yellow); Glucose,Urine (UA) Negative (Negative); Ketones,Urine Negative (Negative); Protein,Urine 3+ (Negative); Specific Gravity, Urine >= 1.030 (1.005-1.030); UTC Leukocyte Esterase,Urine Trace (Negative); UTC Nitrate,Urine Negative (Negative); UTC Pregnancy Test, Urine Negative (Negative); Urobilinogen,Urine 0.2 EU/dl (0.2)
[2023-03-07 10:04] VITALS: BP 142/71; PULSE 85; RESP 20; TEMP 36.8; O2SAT 96
== END 2023-03-07 10:17 | disposition home or self-care (01) ==
PROVIDERS: Emergency Provider Nurse Practitioner Family; PCP Internal Medicine
DX: N39.0 Urinary tract infection, site not specified (principal); B96.29 Other Escherichia coli [E. coli] as the cause of diseases classified elsewhere; M54.59 Other low back pain; F17.290 Nicotine dependence, other tobacco product, uncomplicated; K21.9 Gastro-esophageal reflux disease without esophagitis; I10 Essential (primary) hypertension
CPT/HCPCS: 81003; 81025; 87086; 99212; 99214; G0463

== ENCOUNTER 2023-04-08 15:14 | Emergency (ER) | payer BC, SELFPAY ==
[2023-04-08 15:30] VITALS: BP 123/83; PULSE 87; RESP 20; TEMP 37.3; O2SAT 98; BMI 40.7
[2023-04-08 15:43] LABS: Apearance,Urine Clear (Clear); Color,Urine Dark Yellow (Yellow); Glucose,Urine (UA) Negative (Negative); Protein,Urine Trace (Negative); Specific Gravity, Urine >= 1.030 (1.005-1.030)
[2023-04-08 15:44] LABS: Bilirubin,Urine Negative (Negative); Blood, Urine Negative (Negative); Ketones,Urine Negative (Negative); UTC Leukocyte Esterase,Urine Negative (Negative); UTC Nitrate,Urine Negative (Negative); Urobilinogen,Urine 2 EU/dl (0.2)
--- NOTE | 2023-04-08 15:44 | EXP.UTC ---
Discharge Plan Disposition Patient Disposition: Home, Self-Care Condition: Good Prescriptions Prescriptions: New dicyclomine 10 mg capsule 10 mg PO TID PRN (Reason: abdominal pain/cramping) Qty: 15 0RF ondansetron 4 mg tablet,disintegrating 4 mg PO Q8H PRN (Reason: nausea and vomiting) Qty: 10 0RF No Action bisoprolol fumarate 5 mg tablet 5 mg PO DAILY sertraline 100 mg tablet 200 mg PO DAILY Referrals Follow up/Referrals: Donald Munoz MD [Primary Care Provider] - See instructions Activity Restrictions/Add. Instructions Additional Instructions/Restrictions: Follow up with your Family Doctor if no improvement or any worsening of symptoms Take medication as prescribed Collect diarrhea sample and bring back to out patient lab this test may take 3-5 days for the results Over the counter Motrin and/or Tylenol for pain Make sure that you are drinking plenty of fluids Go straight to the closest Emergency Room if any life threatening symptoms Clinical Impressions Clinical Impression: Gastroenteritis Stand Alone Forms Stand Alone Forms: Work/School Release Instructions Patient Instructions: Diarrhea, Dicyclomine, Ondansetron Discharge ED Provider: Nita Lennon [facility] [place] General Stated complaint: nausea, diarrhea, abd and back apin Mode of Arrival: Ambulatory Source of Information: Patient Limitations: No Limitations Time Seen by Provider: 04/08/23 15:44 Description of Symptoms (Recalled from Triage Doc. by RN): PATIENT STATES SHE HAS HAD NAUSEA FOR THE LAST FEW WEEKS, AND STATES THIS MORNING SHE STARTED HAVING CRAMPING IN HER PELVIC AREA AND LOWER BACK, CHILLS, PAIN WITH URINATION, AND DIARRHEA. HEENT Symptoms (Recalled from RN notes): No Resp Symptoms (Recalled from RN notes): No Skin Symptoms (Recalled from RN notes): No MS Symptoms (Recalled from RN notes): No Functional Status (Recalled from RN notes): WNL History of Present Illness Provider Complaint: Patient states that for the last couple weeks she has been having some nausea on and off States that she was recently on antibiotics for UTI then again on antibiotics for dental infection States that she has been a little achy and having chills and this morning she woke up and she was a little achy in her back and having cramping in her abdomen States that she did have some diarrhea and had burning one time when she urinated but not had any burning since but has continued to have cramping like feeling and a little diarrhea so she came in Related Data Home Medications Medication Instructions Recorded Confirmed bisoprolol fumarate 5 mg tablet 5 mg PO DAILY 12/09/22 04/08/23 sertraline 100 mg tablet 200 mg PO DAILY 12/09/22 04/08/23 Previous Rx's Medication Instructions Recorded dicyclomine 10 mg capsule 10 mg PO TID PRN abdominal 04/08/23 pain/cramping #15 caps ondansetron 4 mg disintegrating 4 mg PO Q8H PRN nausea and 04/08/23 tablet vomiting #10 tabs Allergies Allergy/AdvReac Type Severity Reaction Status Date / Time doxylamine AdvReac Severe Shakiness Verified 02/19/23 14:03 [From [facility] (doxylamine)] Worker's Comp Is this a Worker's Comp case?: No [facility] Disclaimer: The information contained in this section may have been updated after the patient was seen, as this information can be updated by other users. Medical History Abnormal electrocardiogram [ECG] [EKG] Abnormal heart rate complicating Anxiety Carpal tunnel syndrome during Depression Essential hypertension GERD (gastroesophageal reflux disease) Hypertension Tinnitus Vertigo Vestibular migraine Surgical History History of Family History Other No significant family history Social History Smoking Status: Current every day smoker tobacco type: e-cigarettes alcohol intake: current substance use type: denies use current occupational status: employed Travel in the last 8 weeks: None household members: family housing: house marital status: single ROS Obtained: Yes All systems reviewed & no additional complaints except as documented and Yes Systems reviewed as appropriate & no additional complaints except as documented Constitutional Constitutional: Reports system reviewed and no additional complaints, except as documented, Reports as per HPI, Reports body ache, Reports chills and Denies fever(s) ENT Ears, Nose, Mouth, and Throat: Reports system reviewed and no additional complaints, except as documented and Reports as per HPI Cardiovascular Cardiovascular: Reports system reviewed and no additional complaints, except as documented and Reports as per HPI Respiratory Respiratory: Reports system reviewed and no additional complaints, except as documented and Reports as per HPI Gastrointestinal Gastrointestingal: Reports system reviewed and no additional complaints, except as documented, as per HPI, cramping, diarrhea and nausea; Denies belching, bloating, constipation or vomiting Genitourinary Female Genitourinary: Reports system reviewed and no additional complaints, except as documented, Reports as per HPI and Reports other Comments: burned one time earlier when she urinated but not since Musculoskeletal Musculoskeletal: Reports system reviewed and no additional complaints, except as documented, Reports as per HPI and Reports back pain (achy like pain at times) Physical Exam General General appearance: alert and in no apparent distress ENT ENT exam: Present mucous membranes moist Respiratory Respiratory exam: Absent normal lung sounds bilaterally, respiratory distress or wheezes Cardiovascular Cardiovascular exam: Present regular rate, normal rhythm and normal heart sounds Abdominal Exam Abdominal exam: Present soft and normal bowel sounds; Absent distention, tenderness, guarding or rebound Neurological Exam Neurological exam: Present alert, oriented X3 and normal gait Medical Decision Making Jarett Inquiry Pt receiving controlled substance: No Jarett was queried for this patient: No Vital Signs: 04/08/23 15:30 Temperature 99.2 F Temperature Source Oral Pulse Rate [Left Brachial] 87 Respiratory Rate 20 Blood Pressure [Left Arm] 123/83 Blood Pressure Mean [Left Arm] 96 Blood Pressure Source [Left Arm] Automatic Cuff Blood Pressure Position [Left Arm] Sitting 02 Sat by Pulse Oximetry 98 Oxygen Delivery Method Room Air Lab Data Lab results reviewed: Yes I reviewed the patient's lab results. Medical Decision Narrative: Discussed with patient about transfer to the ED for further work up and evaluation and she declined wants to try medication and will follow up with PCP if symptoms do not improve and will go straight to the ED if cramping becomes worse or starts having abdominal pain and fever will dc with simona
[2023-04-08 15:50] LABS: UTC Pregnancy Test, Urine Negative (Negative)
[2023-04-08 15:59] VITALS: BP 123/83; PULSE 87; RESP 20; TEMP 37.3; O2SAT 98
== END 2023-04-08 16:08 | disposition home or self-care (01) ==
PROVIDERS: Emergency Provider Nurse Practitioner; PCP Internal Medicine
DX: K52.9 Noninfective gastroenteritis and colitis, unspecified (principal); R11.0 Nausea; R68.83 Chills (without fever); M79.18 Myalgia, other site
CPT/HCPCS: 81003; 81025; 99212; 99214; G0463

== ENCOUNTER 2023-09-02 18:00 | Outpatient (CLI) | payer BC, SELFPAY ==
[2023-09-02 18:47] LABS: Basophils # 0.1 K/mm3 (0-0.2); Basophils % 1.3 % (0.1-2.0); Eosinophils # 0.3 K/mm3 (0.0-0.4); Eosinophils % 3.3 % (0.1-12.0); Hematocrit 42.1 % (37.0-47.0); Hemoglobin 13.4 g/dL (12.2-16.2); Lymphocytes % 42.7 % (10-50); Mean Corpuscular HGB Conc 31.9 g/dL (31.8-35.4); Mean Corpuscular Hemoglobin 26.5 pg (27.0-31.2); Mean Corpuscular Volume 83.1 fl (81-99); Monocytes # 0.6 K/mm3 (0.1-1.0); Monocytes % 6.4 % (1.7-9.3); Neutrophils # 4.3 K/mm3 (1.8-7.8); Neutrophils % 46.3 % (37.0-80.0); Platelet Count 457 K/mm3 (142-424); Red Blood Count 5.06 M/mm3 (4.20-5.40); White Blood Count 9.4 K/mm3 (4.8-10.8)
[2023-09-02 19:21] LABS: Alanine Aminotransferase 34 U/L (12-78); Albumin Level 4.8 g/dl (3.5-5.0); Albumin/Globulin Ratio 1.2 (1.1-1.8); Alkaline Phosphatase 105 U/L (38-126); Anion Gap 16.2 mEq/L (5-15); Aspartate Amino Transferase 40 U/L (14-36); Bilirubin,Total 0.5 mg/dl (0.2-1.3); Blood Urea Nitrogen 11 mg/dl (7-17); Calcium 10.3 mg/dl (8.4-10.2); Carbon Dioxide 28 mmol/L (22.0-30.0); Chloride 99 mmol/L (98-107); Estimated Glomerular Filt Rate 104 ml/min (>60); GFR (African American) 125 ML/MIN (>60); Globulin 4.1 g/dL (1.3-3.2); Glucose 84 mg/dl (74-100); Potassium 4.2 mmoL/L (3.5-5.1); Sodium 139 mmol/L (136-145); Total Protein,Serum 8.9 g/dl (6.3-8.2)
[2023-09-02 19:26] LABS: C-Reactive Protein 10.8 mg/L (0-4)
[2023-09-02 19:35] LABS: Triiodothryronine (T3) Uptake 30 % (23.5-40.5)
[2023-09-02 19:36] LABS: T4 (Thyroxine) 6.8 ug/dl (5.53-11.0)
[2023-09-02 19:39] LABS: 25-OH Vitamin D, Total 27.3 ng/mL (30-100)
[2023-09-02 19:50] LABS: Thyroid Stimulating Hormone 1.96 uIU/mL (0.465-4.68)
[2023-09-02 19:53] LABS: Hemoglobin A1C 5.7 % (4.0-6.0)
[2023-09-02 20:11] LABS: Vitamin B12 696 pg/mL (239-931)
[2023-09-02 20:37] LABS: Erythrocyte Sedimentation Rate 87 mm/hr (0-20)
[2023-09-04 13:02] LABS: C-Peptide 4.9 ng/mL (1.1-4.4); Thyroid Peroxidase Antibodies <9 IU/mL (0-34)
[2023-09-04 13:11] LABS: Anti-Cyclic Citrullinated Pept 6 units (0-19)
[2023-09-04 14:33] LABS: Anti-Centromere B Antibodies <0.2 AI (0.0-0.9); Anti-DNA (DS) Ab Qn <1 IU/mL (0-9); Anti-Jo-1 <0.2 AI (0.0-0.9); Anti-Smith Antibody <0.2 AI (0.0-0.9); Antichromatin Antibodies <0.2 AI (0.0-0.9); Antiscleroderma-70 Antibodies <0.2 AI (0.0-0.9); RA Latex Turbid. <10.0 IU/mL (<14.0); RNP Antibodies <0.2 AI (0.0-0.9); Sjogren's Anti-SS-A <0.2 AI (0.0-0.9); Sjogren's Anti-SS-B <0.2 AI (0.0-0.9)
[2023-09-06 07:14] LABS: Thyroid Stimulating Immunoglob <0.10 IU/L (0.00-0.55)
== END 2023-09-02 23:59 | disposition home or self-care (01) ==
LOC: LAB.DROPOF 09-03 09:26
PROVIDERS: PCP Physician Assistant; Visit Provider Physician Assistant
DX: H47.10 Unspecified papilledema (principal); R73.9 Hyperglycemia, unspecified; R63.5 Abnormal weight gain; Z68.41 Body mass index [BMI] 40.0-44.9, adult
CPT/HCPCS: 80050; 80053; 82306; 82607; 83036; 84436; 84443; 84445; 84479; 84681; 85025; 85651; 86140; 86200; 86225; 86235; 86376; 86431

== ENCOUNTER → 2023-10-03 07:20 | Day surgery (SDC) | payer BC, SELFPAY ==
[2023-10-03 07:54] VITALS: BMI 43.7
[2023-10-03 07:56] VITALS: BP 150/80; PULSE 94; RESP 18; TEMP 36.1; O2SAT 99
--- NOTE | 2023-10-03 08:42 | EXP.TILT ---
Findings:: PROCEDURE: Tilt Table Test REQUESTING PROVIDER: Venita Lee PA-C INDICATIONS: Chronic dizziness BETA BLOCKERS: Bisoprolol was held for 36 hours prior to testing PRE-TILT VITAL SIGNS AFTER 5 MINUTES IN SUPINE POSITION : BP 143/79, HR 79 bpm and sinus rhythm, O2 Sats 100% PROCEDURE SUMMARY: Patient was prepped per protocol, IV started, connected to heart, blood pressure and oxygen saturation monitors. Safety straps were applied and she was then tilted upright at 70 degrees for a total of 30 minutes. The patient reported feeling mildly lightheaded while still in the supine position. After being tilted upright she noted a decrease in her lightheadedness. After 15 minutes upright she complained of feeling slightly lightheaded again. When she was returned to the supine position at test completion, she denied any symptoms. During the test she had no near-syncope or syncope and never felt close to passing out at any time. After initially being placed upright, her blood pressure (145/80) did not change compared to her supine pressure (143/79) but her heart rate did increase from 79 bpm to 108 bpm. Over the next 10 minutes her BP gradually decreased to a low of 125/76 (HR 79 bpm), but this was not associated with any symptoms. For the remainder of the test her BP remained stable, ranging from 130/78 to 136/84 with heart rates ranging from 80 to 91 bpm. Her heart rhythm was sinus throughout and O2 Sats were 99 to 100%. CONCLUSIONS: Gradual 20 mmHg drop in systolic BP after being tilted upright, with no associated symptoms. Otherwise unremarkable test.
== END ==
PROVIDERS: PCP Physician Assistant; Visit Provider Physician Assistant
DX: R42 Dizziness and giddiness (principal)
CPT/HCPCS: 93660

== ENCOUNTER 2024-01-09 16:58 | Emergency (ER) | payer BC, SELFPAY ==
[2024-01-09 17:25] VITALS: BP 142/81; PULSE 75; RESP 20; TEMP 36.9; O2SAT 97; BMI 45.8
--- NOTE | 2024-01-09 17:34 | ED_ITS ---
Discharge Plan Disposition Patient Disposition: Home, Self-Care Condition: Good Prescriptions Prescriptions: New ondansetron 4 mg Tablet,Disintegrating 4 mg PO Q8H PRN (Reason: Nausea) Qty: 12 0RF famotidine 40 mg tablet 40 mg PO HS 30 Days Qty: 30 0RF No Action sertraline [Zoloft] 50 mg tablet 50 mg PO DAILY Patient Comments: TAKE FOUR TABLETS BY MOUTH EVERY DAY cholecalciferol (vitamin D3) 1,250 mcg (50,000 unit) capsule 1,250 mcg PO WEEKLY Qty: 5 0RF bisoprolol fumarate 5 mg tablet 5 mg PO DAILY Qty: 90 1RF Referrals Follow up/Referrals: Donald Munoz MD [Primary Care Provider] - See instructions Activity Restrictions/Add. Instructions Additional Instructions/Restrictions: Drink plenty of fluids. Take tylenol or ibuprofen for pain or fever. Take the medications as directed. Follow up with your regular doctor. We will give you a list of primary care physicians that are taking new patients. GO TO THE ER FOR ANY WORSENING SYMPTOMS Clinical Impressions Clinical Impression: Abdominal pain Instructions Patient Instructions: DI for Abdominal Pain-Adult, Ondansetron, Famotidine Print Language Print Language: Hungarian Discharge ED Provider: Edd [facility] [place] HPI General Stated complaint: Right side lee pain,nausea Time Seen by Provider: 01/09/24 17:34 Related Data Home Medications ?Medication ?Instructions ?Recorded ?Confirmed sertraline 50 mg tablet (Zoloft) 50 mg PO DAILY 09/01/23 01/09/24 Previous Rx's ?Medication ?Instructions ?Recorded cholecalciferol (vitamin D3) 1,250 1,250 mcg PO WEEKLY #5 caps 09/05/23 mcg (50,000 unit) capsule bisoprolol fumarate 5 mg tablet 5 mg PO DAILY #90 tabs 11/25/23 famotidine 40 mg tablet 40 mg PO HS 30 days #30 tabs 01/09/24 ondansetron 4 mg disintegrating 4 mg PO Q8H PRN Nausea #12 tabs 01/09/24 tablet Allergies Allergy/AdvReac Type Severity Reaction Status Date / Time doxylamine AdvReac Severe Shakiness Verified 10/03/23 07:52 [From [facility] (doxylamine)] [facility] Disclaimer: The information contained in this section may have been updated after the patient was seen, as this information can be updated by other users. Medical History (Updated 01/09/24 @ 17:45 by Edd eMjia APRN) PCOS (polycystic ovarian syndrome) Tinnitus Vestibular migraine Vertigo Abnormal electrocardiogram [ECG] [EKG] Abnormal heart rate complicating Essential hypertension Carpal tunnel syndrome during Anxiety GERD (gastroesophageal reflux disease) Depression Hypertension Surgical History History of Family History (Updated 10/03/23 @ 07:49 by Cheryl Galaviz RN) Other Colon cancer Family history of hyperlipidemia Family history of hypertension No significant family history Social History (Updated 10/03/23 @ 07:51 by Cheryl Galaviz RN) Smoking Status: Current every day smoker tobacco type: e-cigarettes alcohol intake: never substance use type: denies use current occupational status: employed Travel in the last 8 weeks: None household members: family housing: house marital status: single ROS Obtained: Yes All systems reviewed & no additional complaints except as documented Constitutional Constitutional: Denies chills, Denies fever(s) and Reports poor appetite ENT Ears, Nose, Mouth, and Throat: Denies dizziness and Denies sore throat Cardiovascular Cardiovascular: Denies dyspnea Respiratory Respiratory: Denies chest congestion, Denies cough and Denies dyspnea Gastrointestinal Gastrointestingal: Reports as per HPI, abdominal pain and nausea; Denies vomiting Genitourinary Female Genitourinary: Denies difficulty voiding, Denies dysuria, Denies hematuria, Denies urinary frequency, Denies urinary incontinence, Denies urinary hesitancy and Denies urinary urgency Musculoskeletal Musculoskeletal: Denies arthralgias Integumentary/Breasts Skin/Breast: Denies rash Neurologic Neurologic: Denies dizziness Physical Exam General General appearance: alert and in no apparent distress Head Head exam: atraumatic and normocephalic Eye Eye exam: Present normal appearance, PERRL and EOMI ENT ENT exam: Present normal exam, normal oropharynx, mucous membranes moist, TM's normal bilaterally and normal external ear exam Neck Neck exam: Present normal inspection, full ROM and trachea midline; Absent tenderness, meningismus or lymphadenopathy Chest Chest inspection: Present normal inspection and symmetric chest wall rise; Absent tenderness, rash or abscess Respiratory Respiratory exam: Present normal lung sounds bilaterally; Absent respiratory distress, wheezes or stridor Cardiovascular Cardiovascular exam: Present regular rate and normal rhythm; Absent irregular rhythm, systolic murmur, diastolic murmur or JVD Abdominal Exam Abdominal exam: Present soft and hyperactive bowel sounds; Absent distention, tenderness, guarding, rebound, rigidity, psoas sign, obturator sign, heel tap sign, Holly's sign, Rovsing's sign or tenderness at McBurney's Point Extremities Exam Extremities exam: Present normal inspection and full ROM; Absent tenderness Back Exam Back exam: Present normal inspection and full ROM; Absent tenderness, CVA tenderness (R) or CVA tenderness (L) Neurological Exam Neurological exam: Present alert, oriented X3 and CN II-XII intact Psychiatric Psychiatric exam: Present normal affect and normal mood Skin Skin exam: Present warm, dry, intact and normal color Lymphatic Lymphatic Findings: no adenopathy Medical Decision Making Medical Records Medical records reviewed: No I reviewed the patient's medical records. Screening: Per USPSTF and CDC recommendations, given the prevalence of disease in our region, it is our hospital?s policy to screen for HIV and viral Hepatitis for all patients aged 18 and over and those with ongoing risk factors. Jarett Inquiry Pt receiving controlled substance: No Lab Data Lab results reviewed: Yes I reviewed the patient's lab results. 01/09/24 18:00 01/09/24 18:00
[2024-01-09 17:37] LABS: Apearance,Urine Clear (Clear); Color,Urine Yellow (Yellow); PH,Urine 5.5 (5.0-8.5); Specific Gravity, Urine >= 1.030 (1.005-1.030)
[2024-01-09 17:38] LABS: Bilirubin,Urine Negative (Negative); Blood, Urine Negative (Negative); Glucose,Urine (UA) Negative (Negative); Ketones,Urine Negative (Negative); Protein,Urine Negative (Negative); UTC Leukocyte Esterase,Urine Negative (Negative); UTC Nitrate,Urine Negative (Negative); UTC Pregnancy Test, Urine Negative (Negative); Urobilinogen,Urine 0.2 EU/dl (0.2)
[2024-01-09 18:16] LABS: Basophils # 0.2 K/mm3 (0-0.2); Basophils % 1.4 % (0.1-2.0); Eosinophils # 0.4 K/mm3 (0.0-0.4); Eosinophils % 3.9 % (0.1-12.0); Hematocrit 39.7 % (37.0-47.0); Hemoglobin 13.4 g/dL (12.2-16.2); Lymphocytes # 4.5 K/mm3 (0.7-4.5); Lymphocytes % 39.8 % (10-50); Mean Corpuscular HGB Conc 33.8 g/dL (31.8-35.4); Mean Corpuscular Hemoglobin 27.7 pg (27.0-31.2); Mean Platelet Volume 7.5 fl (7.4-10.4); Monocytes # 0.6 K/mm3 (0.1-1.0); Neutrophils # 5.7 K/mm3 (1.8-7.8); Neutrophils % 49.9 % (37.0-80.0); Platelet Count 362 K/mm3 (142-424); Red Blood Count 4.84 M/mm3 (4.20-5.40); Red Cell Distribution Width 14.9 % (11.5-17.5); White Blood Count 11.3 K/mm3 (4.8-10.8)
[2024-01-09 18:22] LABS: Alanine Aminotransferase 32 U/L (12-78); Albumin Level 4.5 g/dl (3.5-5.0); Albumin/Globulin Ratio 1.2 (1.1-1.8); Alkaline Phosphatase 81 U/L (38-126); Amylase 76 U/L (30-110); Aspartate Amino Transferase 34 U/L (14-36); Bilirubin,Total 0.7 mg/dl (0.2-1.3); Blood Urea Nitrogen 13 mg/dl (7-17); Calcium 9.7 mg/dl (8.4-10.2); Carbon Dioxide 26 mmol/L (22.0-30.0); Chloride 102 mmol/L (98-107); Creatinine Clearance Estimated 121 mL/min (50-200); Estimated Glomerular Filt Rate 124 ml/min (>60); GFR (African American) 150 ML/MIN (>60); Globulin 3.7 g/dL (1.3-3.2); Glucose 97 mg/dl (74-100); Lipase 85 U/L (23-300); Sodium 137 mmol/L (136-145); Total Protein,Serum 8.2 g/dl (6.3-8.2)
[2024-01-09 18:58] VITALS: BP 142/81; PULSE 75; RESP 20; TEMP 36.9; O2SAT 97
== END 2024-01-09 19:01 | disposition home or self-care (01) ==
PROVIDERS: Emergency Provider Nurse Practitioner Family; PCP Internal Medicine
DX: R10.9 Unspecified abdominal pain (principal); R11.0 Nausea; R63.8 Other symptoms and signs concerning food and fluid intake
CPT/HCPCS: 80053; 81003; 81025; 82150; 83690; 85025; 99212; G0381

== ENCOUNTER 2024-03-09 08:10 | Emergency (ER) | payer BC, SELFPAY ==
[2024-03-09 08:20] VITALS: BP 141/86; PULSE 81; RESP 19; TEMP 36.8; O2SAT 98; BMI 44.6
--- NOTE | 2024-03-09 08:34 | ED_ITS ---
Discharge Plan Disposition Patient Disposition: Home, Self-Care Condition: Good Prescriptions Prescriptions: New azithromycin [Zithromax Z-Harpal] 250 mg tablet See Rx Instructions .ROUTE .COMPLEX 5 Days Qty: 6 0RF Rx Instructions: For 250 mg dose pack: take 500 mg today (day 1), then 250 mg for 4 days (days 2-5) benzonatate 100 mg capsule 100 mg PO TID PRN (Reason: cough) Qty: 30 0RF methylprednisolone [Medrol (Harpal)] 4 mg tablets,dose pack See Rx Instructions .Route .COMPLEX 6 Days Qty: 21 0RF Rx Instructions: taper pack; No Action sertraline [Zoloft] 50 mg tablet 50 mg PO DAILY Patient Comments: TAKE FOUR TABLETS BY MOUTH EVERY DAY bisoprolol fumarate 5 mg tablet 5 mg PO DAILY Qty: 90 1RF Referrals Follow up/Referrals: Donald Munoz MD [Primary Care Provider] - See instructions Activity Restrictions/Add. Instructions Additional Instructions/Restrictions: *Monitor Temp, Over the counter Motrin or Tylenol as directed/as needed Tylenol every 4 hours and Motrin every 6 hours (as long as your family doctor has told you that you can take it) for fever or pain. and straight to ER if unable to lower temp less than 101.0 after medication given *Warm salt water gargles may help to soothe the throat *Throat Lozenges? *Warm fluids like tea with honey may help to soothe the throat? *Sleep elevated *Humidifier/Vaporizer Your throat swab was sent for culture. Those results are typically sent to your primary care. Be sure to follow up in 2-3 days with your family doctor/primary care physician if no improvement so they can review those result and treat if necessary. If you don?t have a primary care doctor, I recommend you get one but in the mean time, you will have to return to a walk in clinic Follow up IMMEDIATELY for new or worsening symptoms or no Noticeable improvement over the next 48-72 hours. 911 for difficulty breathing or swallowing Clinical Impressions Clinical Impression: Sinusitis Qualifiers: Sinusitis location: unspecified location Chronicity: unspecified Qualified Code(s): J32.9 - Chronic sinusitis, unspecified Instructions Patient Instructions: Sinusitis, DI for Sinusitis Print Language Print Language: Djiboutian Discharge ED Provider: Nita Lennon [facility] [place] HPI General Stated complaint: congestion Mode of Arrival: Ambulatory Source of Information: Patient Limitations: No Limitations Time Seen by Provider: 03/09/24 08:34 Description of Symptoms (Recalled from Triage Doc. by RN): PATIENT C/O CHEST CONGESTION, COUGH, RUNNY NOSE, SORE THROAT, FEVER, AND CLOGGED UP EARS X 4 DAYS HEENT Symptoms (Recalled from RN notes): Yes Resp Symptoms (Recalled from RN notes): Yes Skin Symptoms (Recalled from RN notes): No MS Symptoms (Recalled from RN notes): No Functional Status (Recalled from RN notes): WNL History of Present Illness Provider Complaint: Patient states that she started feeling bad on Friday with sore throat, ear pain and pressure, cough, chest congestion, cough and runny nose States that she has had fevers on and off but controllable with medication States today she wasnt feeling any better so she came in to get checked Related Data Home Medications ?Medication ?Instructions ?Recorded ?Confirmed sertraline 50 mg tablet (Zoloft) 50 mg PO DAILY 09/01/23 03/09/24 Previous Rx's ?Medication ?Instructions ?Recorded bisoprolol fumarate 5 mg tablet 5 mg PO DAILY #90 tabs 11/25/23 azithromycin 250 mg tablet See Rx Instructions PO .COMPLEX 5 03/09/24 (Zithromax Z-Harpal) days #6 tabs benzonatate 100 mg capsule 100 mg PO TID PRN cough #30 caps 03/09/24 methylprednisolone 4 mg tablets in See Rx Instructions .Route 03/09/24 a dose pack (Medrol (Harpal)) .COMPLEX 6 days #21 tabs Allergies Allergy/AdvReac Type Severity Reaction Status Date / Time doxylamine (From [facility] AdvReac Severe Shakiness Verified 10/03/23 07:52 (doxylamine)) Worker's Comp Is this a Worker's Comp case?: No [facility] Disclaimer: The information contained in this section may have been updated after the patient was seen, as this information can be updated by other users. Medical History (Updated 03/09/24 @ 08:42 by Nita Lennon APRN) PCOS (polycystic ovarian syndrome) Tinnitus Vestibular migraine Vertigo Abnormal electrocardiogram [ECG] [EKG] Abnormal heart rate complicating Essential hypertension Carpal tunnel syndrome during Anxiety GERD (gastroesophageal reflux disease) Depression Hypertension Surgical History History of Family History (Updated 10/03/23 @ 07:49 by Cheryl Galaviz RN) Other Colon cancer Family history of hyperlipidemia Family history of hypertension No significant family history Social History (Updated 10/03/23 @ 07:51 by Cheryl Galaviz RN) Smoking Status: Current every day smoker tobacco type: e-cigarettes alcohol intake: never substance use type: denies use current occupational status: employed Travel in the last 8 weeks: None household members: family housing: house marital status: single Have you lived/traveled outside [place] in past 30 days?: No Contact w/someone who lives/traveled outside [place] past 30 days?: No Exposure to someone with infectious disease in past 14 days?: No Do you have a fever (greater than 100.4 F or 38 C)?: No Have you tested positive for COVID-19: No Exposed to someone with COVID-19 in past 14 days?: No Do you have a sore throat?: No Do you have a cough?: No Do you have any weakness?: No Do you have any diarrhea?: No Are you experiencing any unusual bleeding?: No Do you have any muscle aches/pain?: No Do you have any abdominal pain?: No Are you experiencing loss of taste or smell?: No ROS Obtained: Yes All systems reviewed & no additional complaints except as documented and Yes Systems reviewed as appropriate & no additional complaints except as documented Constitutional Constitutional: Reports system reviewed and no additional complaints, except as documented, Reports as per HPI, Reports body ache, Reports fever(s) and Reports headache(s) ENT Ears, Nose, Mouth, and Throat: Reports system reviewed and no additional complaints, except as documented, Reports as per HPI, Reports headache(s), Reports nasal congestion, Reports nasal discharge and Reports sore throat Cardiovascular Cardiovascular: Reports system reviewed and no additional complaints, except as documented and Reports as per HPI Respiratory Respiratory: Reports system reviewed and no additional complaints, except as documented, Reports as per HPI, Reports chest congestion and Reports cough Gastrointestinal Gastrointestingal: Reports system reviewed and no additional complaints, except as documented and as per HPI Neurologic Neurologic: Reports headache(s) Physical Exam General General appearance: alert and in no apparent distress ENT ENT exam: Present mucous membranes moist Expanded ENT Exam TM/Canal exam: Bilateral TM: bulging Nose exam: Present sinus tenderness Chest Chest inspection: Present normal inspection and symmetric chest wall rise Respiratory Respiratory exam: Present normal lung sounds bilaterally; Absent respiratory distress or wheezes Cardiovascular Cardiovascular exam: Present regular rate, normal rhythm and normal heart sounds Neurological Exam Neurological exam: Present alert, oriented X3 and normal gait Medical Decision Making Medical Records Screening: Per USPSTF and CDC recommendations, given the prevalence of disease in our region, it is our hospital?s policy to screen for HIV and viral Hepatitis for all patients aged 18 and over and those with ongoing risk factors. Jarett Inquiry Pt receiving controlled substance: No Jarett was queried for this patient: No Vital Signs: 03/09/24 08:20 Temperature 98.3 F Temperature Source Oral Pulse Rate [Left Brachial] 81 Respiratory Rate 19 Blood Pressure [Left Arm] 141/86 H Blood Pressure Mean [Left Arm] 104 Blood Pressure Source [Left Arm] Automatic Cuff Blood Pressure Position [Left Arm] Sitting 02 Sat by Pulse Oximetry 98 Oxygen Delivery Method Room Air Lab Data Lab results reviewed: Yes I reviewed the patient's lab results.
[2024-03-09 08:44] LABS: UTC Influenza A Antigen Negative (Negative); UTC Strep Screen (Rapid) Negative (Negative)
[2024-03-09 08:45] LABS: UTC Influenza B Antigen Negative (Negative)
[2024-03-09 08:50] VITALS: BP 141/86; PULSE 81; RESP 19; TEMP 36.8; O2SAT 98
== END 2024-03-09 08:55 | disposition home or self-care (01) ==
PROVIDERS: Emergency Provider Nurse Practitioner; PCP Internal Medicine
DX: J32.9 Chronic sinusitis, unspecified (principal); R50.9 Fever, unspecified; R51.9 Headache, unspecified; R07.0 Pain in throat; R05.9 Cough, unspecified; R09.89 Other specified symptoms and signs involving the circulatory and respiratory systems
CPT/HCPCS: 87804; 87880; 99212; G0381

== ENCOUNTER 2024-05-03 16:45 | Outpatient (CLI) | payer BC, SELFPAY ==
[2024-05-03 18:48] LABS: HIV Combo NEGATIVE (Negative)
[2024-05-03 22:45] LABS: RPR W/RFX Titers Nonreactive (Nonreactive)
[2024-05-05 08:13] LABS: Hepatitis B Surface Antigen Negative (Negative)
== END 2024-05-03 23:59 | disposition home or self-care (01) ==
LOC: LAB 16:46
PROVIDERS: PCP Internal Medicine; Visit Provider Obstetrics & Gynecology
DX: Z20.2 Contact with and (suspected) exposure to infections with a predominantly sexual mode of transmission (principal); N89.8 Other specified noninflammatory disorders of vagina
CPT/HCPCS: 36415; 86592; 87340; 87389

== ENCOUNTER 2024-09-20 15:05 | Emergency (ER) | payer BC, SELFPAY ==
--- NOTE | 2024-09-20 16:13 | CT_ITS ---
PROCEDURE INFORMATION: Exam: CTA Head With Contrast, Venography Exam date and time: 09/20/2024 5:38 PM Age: 24 years old Clinical indication: Pain; Headache TECHNIQUE: Imaging protocol: Computed tomography angiography of the head with contrast. Exam focused on the veins. 3D rendering (Not supervised by radiologist): MIP and/or 3D reconstructed images were created by the technologist. Radiation optimization: All CT scans at this facility use at least one of these dose optimization techniques: automated exposure control; mA and/or kV adjustment per patient size (includes targeted exams where dose is matched to clinical indication); or iterative reconstruction. Contrast material: ISOUVE 370; Contrast volume: 80 ml; Contrast route: INTRAVENOUS (IV); COMPARISON: CT HEAD/BRAIN WO CON 09/20/2024 5:35 PM FINDINGS: Superior sagittal sinus: Patent. Straight sinus: Patent. Transverse sinuses: Patent. Sigmoid sinuses: Patent. Internal jugular veins: Limited visualized internal jugular veins are patent. Brain: No definite mass, mass effect, or midline shift. Cerebral ventricles: No ventriculomegaly. Soft tissues: Unremarkable. IMPRESSION: No venous thrombosis.
--- NOTE | 2024-09-20 16:13 | CT_ITS ---
PROCEDURE INFORMATION: Exam: CT Head Without Contrast Exam date and time: 09/20/2024 5:35 PM Age: 24 years old Clinical indication: Pain; Headache TECHNIQUE: Imaging protocol: Computed tomography of the head without contrast. Radiation optimization: All CT scans at this facility use at least one of these dose optimization techniques: automated exposure control; mA and/or kV adjustment per patient size (includes targeted exams where dose is matched to clinical indication); or iterative reconstruction. COMPARISON: CT HEAD/BRAIN WO CON 01/12/2023 10:45 PM FINDINGS: Brain: No hemorrhage. Unremarkable white matter. No mass effect. Cerebral ventricles: No ventriculomegaly. Paranasal sinuses: Visualized sinuses are unremarkable. No fluid levels. Mastoid air cells: Visualized mastoid air cells are well aerated. Bones: Unremarkable. No acute fracture. Soft tissues: Unremarkable. IMPRESSION: No acute intracranial abnormality.
[2024-09-20 16:15] VITALS: BP 142/94; PULSE 66; RESP 16; TEMP 36.8; O2SAT 96; BMI 42.9
[2024-09-20 16:31] VITALS: BP 122/71
[2024-09-20] MEDS: droPERidol 5MG/2ML VIAL 2.5 MG IV (16:34)
[2024-09-20] MEDS: 0.9 % SODIUM CHLORIDE 1000ML 1,000 ML 999 ML IV (16:34)
--- NOTE | 2024-09-20 16:34 | ED_ITS ---
<Statement entered by Nichole Villa DO - 09/20/24 23:55> I was consulted by the LUL, and we discussed the complexity of the problems being addressed. I approved the treatment and management plan for this patient's care in the emergency department, thus performing a substantive portion of the medical decision making. Based on description of symptoms, it is felt the patient most likely is having a complex migraine, however given that she is a young female on control we elected to obtain CT venogram to evaluate for possible cavernous sinus thrombosis, though we felt that unlikely. She was treated with migraine cocktail with good improvement in the symptoms, and CT scans are reassuring. Given this, she was felt to be appropriate for discharge home with close PCP follow-up and strict return precautions. Nichole Villa DO Discharge Plan Disposition Patient Disposition: Home, Self-Care Condition: Good Prescriptions Prescriptions: No Action multivitamin Tablet 1 tab PO DAILY norgestimate-ethinyl estradiol [Sprintec (28)] 0.25-0.035 mg tablet 1 tab PO DAILY Qty: 84 4RF ibuprofen 800 mg tablet PO PRN Patient Comments: TAKE ONE TABLET BY MOUTH THREE TIMES DAILY sertraline 50 mg tablet 100 mg PO DAILY bisoprolol fumarate 5 mg tablet 5 mg PO DAILY Qty: 90 1RF Referrals Follow up/Referrals: Donald Munoz MD [Primary Care Provider, Medical] - See instructions Activity Restrictions/Add. Instructions Additional Instructions/Restrictions: Increase fluids and rest. Please follow-up with your primary care physician for further treatment on your migraines. Clinical Impressions Clinical Impression: Migraine Instructions Patient Instructions: DI for Migraine Print Language Print Language: Azeri Discharge ED Provider: Nichole Villa General Adult HPI <Marcy Clay (ED), HIGHWAY MAINTAINER - Last Filed: 09/20/24 21:13> General Chief complaint: Headache Stated complaint: migraine Time Seen by Provider: 09/20/24 16:09 Mode of Arrival: Ambulatory Source of Information: Patient Description of Symptoms (Recalled from ER Triage Doc. by RN): Pt reports possible migraine x 3 days. Pt states she has episodes of dizziness, aura within her vision which will last 30-45 min each occurance. Pt states she will have a dull ache to back of head with each occurance. Pt reports she just began new control medication, and stopped smoking within the last week. Pt currently denies pain. History of Present Illness HPI narrative: 24-year-old female presents to the ED today for migraine that has been going on for 3 days intermittently. Patient will see zigzags in her left eye then see rainbows this last for 30 to 45 minutes at a time. Then she will have a dull ache in the back of her head. She says this last migraine started at 3 AM with the weird stuff and then it went on until about an hour ago. So it is lasting about 12 hours. Patient states that she recently started control and it was a new control. She says she also quit smoking 1 week ago. She says she did not take her control this morning because she thought that this may be the cause of her migraines. She says that they are stress triggered and now believes that they may be hormone triggered. She says she has PCOS and does not have.'s. He has had nausea no vomiting. She does have hypertension and takes bisoprolol. She also takes sertraline and a vitamin. Patient has been taking Tylenol and ibuprofen and using ice and this has not helped headaches over the past 3 days. She has no other symptoms. Related Data Home Medications ?Medication ?Instructions ?Recorded ?Confirmed ibuprofen 800 mg tablet mg PO PRN 07/07/24 09/01/24 sertraline 50 mg tablet 100 mg PO DAILY 07/07/24 multivitamin 1 tab PO DAILY 09/01/2408/09 Previous Rx's ?Medication ?Instructions ?Recorded bisoprolol fumarate 5 mg tablet 5 mg PO DAILY #90 tabs 05/31/24 norgestimate 0.25 mg-ethinyl 1 tab PO DAILY #84 tabs 0 09/01/24 estradiol 0.035 mg tablet (Sprintec (28)) Allergies Allergy/AdvReac Type Severity Reaction Status Date / [facility] Sh[facility]iness Verified 09/01/24 13:06 (doxylamine)) [facility], [facility] <Marcy Clay (ED), HIGHW[facility] MAINTAINER - Last Filed: 09/20/24 21:13> [facility], [facility] Disclaimer: The information contained in this section may have been updated after the patient was seen, as this information can be updated by other users. Medical History (Updated 09/20/24 @ 18:52 by Marcy Clay (ED), HIGHWAY MAIN[employer]ER) Morbid obesity with BMI of 40.0-44.9, adult Secondary amenorrhea Possible exposure to STD Vaginal discharge Vaginal itching PCOS (polycystic ovarian syndrome) Tinnitus Vestibular migraine Vertigo Abnormal electrocardiogram [ECG] [EKG] Abnormal heart rate complicating Essential hypertension Carpal tunnel syndrome during Anxiety GERD (gastroesophageal reflux disease) Depression Hypertension Surgical History History of Family History Other Colon cancer Family history of hyperlipidemia Family history of hypertension No significant family history Social History Smoking Status: Former smoker tobacco type: e-cigarettes alcohol intake: never substance use type: denies use current occupational status: employed Travel in the last 8 weeks?: None household members: family housing: house marital status: single Have you lived/traveled outside [place] in past 30 days?: No Contact w/someone who lives/traveled outside US past 30 days?: No Exposure to someone with infectious disease in past 14 days?: No Do you have a fever (greater than 100.4 F or 38 C)?: No Have you tested positive for COVID-19?: No Exposed to someone with COVID-19 in past 14 days?: No Do you have a sore throat?: No Do you have a cough?: No Do you have any weakness?: No Do you have any diarrhea?: No Are you experiencing any unusual bleeding?: No Do you have any muscle aches/pain?: No Do you have any abdominal pain?: No Are you experiencing loss of taste or smell?: No Other Medical History Have you received the Flu Vaccine for this season: No Have you received the Pneumonia Vaccine: No <Marcy Clay (ED), HIGHWAY MAIN[employer]ER - Last Filed: 09/20/24 21:13> ROS Obtained: Yes Systems reviewed as appropriate & no additional complaints except as documented Constitutional Constitutional: Reports as per HPI Physical Exam <Marcy Clay (ED), HIGHWAY MAINTAINER - Last Filed: 09/20/24 21:13> General General appearance: alert and in no apparent distress Head Head exam: atraumatic and normocephalic Eye Eye exam: Present normal appearance, PERRL and EOMI ENT ENT exam: Present normal oropharynx and mucous membranes moist Neck Neck exam: Present full ROM and trachea midline Respiratory Respiratory exam: Present normal lung sounds bilaterally Cardiovascular Cardiovascular exam: Present regular rate, normal rhythm, normal heart sounds, +S1 and +S2 Abdominal Exam Abdominal exam: Present soft and normal bowel sounds Extremities Exam Extremities exam: Present normal inspection, full ROM and normal capillary refill Neurological Exam Neurological exam: Present alert, oriented X3 and normal gait Skin Skin exam: Present warm, dry and intact Medical Decision Making <Marcy Clay (ED), HIGHWAY MAIN[employer]ER - Last Filed: 09/20/24 21:13> Medical Records Screening: Per USPSTF and CDC recommendations, given the prevalence of disease in our region, it is our hospital?s policy to screen for HIV and viral Hepatitis for all patients aged 18 and over and those with ongoing risk factors. Jarett Inquiry Pt receiving controlled substance: No Jarett was queried for this patient: No Vital Signs: 09/20/24 16:15 09/20/24 16:31 09/20/24 17:00 Temperature 98.3 F Temperature Source Oral Pulse Rate 71 Pulse Rate [Left] 66 Respiratory Rate 16 Blood Pressure 122/71 118/73 Blood Pressure [Right Arm] 142/94 H Blood Pressure Mean 90 92 Blood Pressure Mean [Right Arm] 110 Blood Pressure Source [Right Arm] Automatic Cuff 02 Sat by Pulse Oximetry 96 95 Oxygen Delivery Method Room Air 09/20/24 18:00 09/20/24 19:02 Temperature 98.2 F Temperature Source Oral Pulse Rate 79 70 Pulse Rate [Left] Respiratory Rate 18 Blood Pressure 122/68 131/78 Blood Pressure [Right Arm] Blood Pressure Mean Blood Pressure Mean [Right Arm] Blood Pressure Source [Right Arm] 02 Sat by Pulse Oximetry 98 Oxygen Delivery Method Room Air Lab Data Lab Results 09/20/24 16:20: WBC 10.5, RBC 4.72, Hgb 13.2, Hct 39.8, MCV 84.3, MCH 28.0, MCHC 33.2, RDW 13.5, Plt Count 371, MPV 9.4, Neut % (Auto) 45.5, Lymph % (Auto) 43.3, [place] % (Auto) 6.5, Eos % (Auto) 3.6, Baso % (Auto) 0.9, Neut # (Auto) 4.8, Lymph # (Auto) 4.5, [place] # (Auto) 0.7, Eos # (Auto) 0.4, Baso # (Auto) 0.1, Sodium 137, Potassium 4.2, Chloride 99, Carbon Dioxide 28, Anion Gap 14.2, BUN 12, Creatinine 0.60, Estimated Creat Clear 125, Estimated GFR 123, Est GFR ( Amer) 149, Glucose 102 H, Calcium 10.1, Magnesium 1.8, Total Bilirubin 0.5, AST 29, ALT 18, Alkaline Phosphatase 77, Total Protein 8.2, Albumin 4.3, Globulin 3.9 H, Albumin/Globulin Ratio 1.1 09/20/24 16:41: Urine Color Yellow, Urine Appearance Clear, Urine pH 6.5, Ur Specific [place] 1.020, Urine Protein Negative, Urine Glucose (UA) Negative, Urine Ketones Negative, Urine Blood Negative, Urine Nitrate Negative, Urine Bilirubin Negative, Urine Urobilinogen 0.2, Ur Leukocyte Esterase Negative, Urine WBC Occasional, Ur Squamous Epith Cells Occasional, Urine Bacteria Trace, Urine HCG, Qual Negative 09/20/24 16:20 09/20/24 16:20 Orders (Tests/Meds): ED MEDICATIONS Discontinued Medications Generic Name Dose Route Start Last Admin Trade Name Freq PRN Reason Stop Dose Admin Droperidol 2.5 mg 09/20/24 16:21 09/20/24 16:34 Droperidol 5mg/2ml Vial IV 09/20/24 16:22 2.5 mg ONCE ONE Administration Hydroxyzine Pamoate 25 mg 09/20/24 18:18 09/20/24 18:29 Hydroxyzine Pamoate 25mg Capsule PO 09/20/24 18:19 Not Given ONCE ONE Sodium Chloride 1,000 mls @ 999 mls/hr 09/20/24 16:18 09/20/24 16:34 Sod Chlor 0.9% 1000ml Bag IV 09/20/24 17:18 999 mls/hr .Q1H1M ONE Administration Iopamidol 80 ml 09/20/24 17:33 09/20/24 17:34 Iopamidol-370 (76%);100ml Bottle IV 09/20/24 17:34 80 ml ONCE ONE Administration Lorazepam 1 mg 09/20/24 18:03 09/20/24 18:32 Lorazepam 2mg/Ml Vial IV 09/20/24 18:04 Not Given ONCE ONE Sodium Chloride 10 ml 09/20/24 17:33 09/20/24 17:34 Sodium Chloride 0.9% 10ml Syr (Rad Only) IV 10/20/24 17:32 10 ml NEEDED PRN Administration Maintain IV Site Sodium Chloride 50 ml 09/20/24 17:33 09/20/24 17:34 0.9 % Sodium Chloride 50 Ml Vial IV 09/20/24 17:34 50 ml ONCE ONE Administration Sodium Chloride 10 ml 09/20/24 18:03 Sodium Chloride 0.9% 10ml Vial IV 10/20/24 18:02 NEEDED PRN to Dilute Lorazepam inj ORDERS Category Date Time Status CT Venogram head Stat Cat Scan 09/20/24 16:[address] head/brain wo con Stat Cat Scan 09/20/24 16:13 Completed CBC w/Auto Diff [Complete Blood Count Auto Diff] Stat Lab 09/20/24 16:20 Completed Comprehensive Metabolic Panel Stat Lab 09/20/24 16:20 Completed Magnesium Stat Lab 09/20/24 16:20 Completed Urinalysis and Microscopic Stat Lab 09/20/24 16:41 Completed Urine , HCG Qual. Stat Lab 09/20/24 16:41 Completed Medical Decision Narrative: patient is a 24-year-old female presenting to the emergency department for evaluation of migraine that started 3 days ago. She was seen zigzags in her left eye that lasted 30 to 45 minutes ago. Patient is hemodynamically stable and nontoxic-appearing upon arrival, afebrile. Differential diagnosis includes migraine, blood clot, hypertension, stress. Workup will be conducted with hematologic labs, specific imaging,. Initial inventions include crystalloid bolus, analgesics. Initial workup reviewed by me hematologic labs are remarkable for nothing acute. Ordered CT and CT venogram as we cannot get an MRI here in the ED. Awaiting results. Take 1 a talk to patient and she says the droperidol made her a little itchy. She says it did work for her headache. But she says she just feels anxious. CT scans all negative. We discussed care. She will follow with PCP <Nichole Villa, - Last Filed: 09/20/24 16:54> Vital Signs: 09/20/24 16:15 09/20/24 16:31 09/20/24 17:00 Temperature 98.3 F Temperature Source Oral Pulse Rate 71 Pulse Rate [Left] 66 Respiratory Rate 16 Blood Pressure 122/71 118/73 Blood Pressure [Right Arm] 142/94 H Blood Pressure Mean 90 92 Blood Pressure Mean [Right Arm] 110 Blood Pressure Source [Right Arm] Automatic Cuff 02 Sat by Pulse Oximetry 96 95 Oxygen Delivery Method Room Air 09/20/24 18:00 09/20/24 19:02 Temperature 98.2 F Temperature Source Oral Pulse Rate 79 70 Pulse Rate [Left] Respiratory Rate 18 Blood Pressure 122/68 131/78 Blood Pressure [Right Arm] Blood Pressure Mean Blood Pressure Mean [Right Arm] Blood Pressure Source [Right Arm] 02 Sat by Pulse Oximetry 98 Oxygen Delivery Method Room Air Lab Data Lab Results 09/20/24 16:20: WBC 10.5, RBC 4.72, Hgb 13.2, Hct 39.8, MCV 84.3, MCH 28.0, MCHC 33.2, RDW 13.5, Plt Count 371, MPV 9.4, Neut % (Auto) 45.5, Lymph % (Auto) 43.3, [place] % (Auto) 6.5, Eos % (Auto) 3.6, Baso % (Auto) 0.9, Neut # (Auto) 4.8, Lymph # (Auto) 4.5, [place] # (Auto) 0.7, Eos # (Auto) 0.4, Baso # (Auto) 0.1, Sodium 137, Potassium 4.2, Chloride 99, Carbon Dioxide 28, Anion Gap 14.2, BUN 12, Creatinine 0.60, Estimated Creat Clear 125, Estimated GFR 123, Est GFR ( Amer) 149, Glucose 102 H, Calcium 10.1, Magnesium 1.8, Total Bilirubin 0.5, AST 29, ALT 18, Alkaline Phosphatase 77, Total Protein 8.2, Albumin 4.3, Globulin 3.9 H, Albumin/Globulin Ratio 1.1 09/20/24 16:41: Urine Color Yellow, Urine Appearance Clear, Urine pH 6.5, Ur Specific [place] 1.020, Urine Protein Negative, Urine Glucose (UA) Negative, Urine Ketones Negative, Urine Blood Negative, Urine Nitrate Negative, Urine Bilirubin Negative, Urine Urobilinogen 0.2, Ur Leukocyte Esterase Negative, Urine WBC Occasional, Ur Squamous Epith Cells Occasional, Urine Bacteria Trace, Urine HCG, Qual Negative Orders (Tests/Meds): ED MEDICATIONS Discontinued Medications Generic Name Dose Route Start Last Admin Trade Name Freq PRN Reason Stop Dose Admin Droperidol 2.5 mg 09/20/24 16:21 09/20/24 16:34 Droperidol 5mg/2ml Vial IV 09/20/24 16:22 2.5 mg ONCE ONE Administration Hydroxyzine Pamoate 25 mg 09/20/24 18:18 09/20/24 18:29 Hydroxyzine Pamoate 25mg Capsule PO 09/20/24 18:19 Not Given ONCE ONE Sodium Chloride 1,000 mls @ 999 mls/hr 09/20/24 16:18 09/20/24 16:34 Sod Chlor 0.9% 1000ml Bag IV 09/20/24 17:18 999 mls/hr .Q1H1M ONE Administration Iopamidol 80 ml 09/20/24 17:33 09/20/24 17:34 Iopamidol-370 (76%);100ml Bottle IV 09/20/24 17:34 80 ml ONCE ONE Administration Lorazepam 1 mg 09/20/24 18:03 09/20/24 18:32 Lorazepam 2mg/Ml Vial IV 09/20/24 18:04 Not Given ONCE ONE Sodium Chloride 10 ml 09/20/24 17:33 09/20/24 17:34 Sodium Chloride 0.9% 10ml Syr (Rad Only) IV 10/20/24 17:32 10 ml NEEDED PRN Administration Maintain IV Site Sodium Chloride 50 ml 09/20/24 17:33 09/20/24 17:34 0.9 % Sodium Chloride 50 Ml Vial IV 09/20/24 17:34 50 ml ONCE ONE Administration Sodium Chloride 10 ml 09/20/24 18:03 Sodium Chloride 0.9% 10ml Vial IV 10/20/24 18:02 NEEDED PRN to Dilute Lorazepam inj ORDERS Category Date Time Status CT Venogram head Stat Cat Scan 09/20/24 16:[address] head/brain wo con Stat Cat Scan 09/20/24 16:13 Completed CBC w/Auto Diff [Complete Blood Count Auto Diff] Stat Lab 09/20/24 16:20 Completed Comprehensive Metabolic Panel Stat Lab 09/20/24 16:20 Completed Magnesium Stat Lab 09/20/24 16:20 Completed Urinalysis and Microscopic Stat Lab 09/20/24 16:41 Completed Urine , HCG Qual. Stat Lab 09/20/24 16:41 Completed ECG Data Tracing #1: I reviewed this ECG and interpreted as documented below: Sinus rhythm with a ventricular rate of 63 bpm. Motion artifact in V6. No acute ST changes concerning for ischemia ECG initial impression date: 09/20/24 ECG initial impression time: 16:38 Critical Care <Marcy Clay (ED), HIGHWAY MAINTAINER - Last Filed: 09/20/24 21:13> Critical Care Time Critical Care Time: No
[2024-09-20 16:36] LABS: Hematocrit 39.8 % (37.0-47.0); Hemoglobin 13.2 g/dL (12.2-16.2); Immature Granulocytes % 0.2 %; Mean Corpuscular HGB Conc 33.2 g/dL (31.8-35.4); Mean Corpuscular Hemoglobin 28.0 pg (27.0-31.2); Mean Corpuscular Volume 84.3 fl (81-99); Nucleated Red Blood Cells % 0 %; Platelet Count 371 K/mm3 (142-424); Red Blood Count 4.72 M/mm3 (4.20-5.40); Red Cell Distribution Width-SD 41.8 fL; White Blood Count 10.5 K/mm3 (4.8-10.8)
--- NOTE | 2024-09-20 16:37 | ECG_ITS ---
APPROVED REPORT Exam: Resting ECG HR:63 bpm ECG Measurements Heart Rate 63 AXES SC 156 P 57 QRSd 91 QRS 45 QT 427 T 30 QTc 435 Conclusion SINUS RHYTHM NORMAL ECG No STEMI Electronically signed by : AGNES MANCINI, 09/21/2024 00:10:42
[2024-09-20 16:46] LABS: Alanine Aminotransferase 18 U/L (12-78); Albumin Level 4.3 g/dl (3.5-5.0); Albumin/Globulin Ratio 1.1 (1.1-1.8); Alkaline Phosphatase 77 U/L (38-126); Anion Gap 14.2 mEq/L (5-15); Aspartate Amino Transferase 29 U/L (14-36); Bilirubin,Total 0.5 mg/dl (0.2-1.3); Blood Urea Nitrogen 12 mg/dl (7-17); Calcium 10.1 mg/dl (8.4-10.2); Carbon Dioxide 28 mmol/L (22.0-30.0); Chloride 99 mmol/L (98-107); Creatinine Clearance Estimated 125 mL/min (50-200); Creatinine,Serum 0.60 mg/dl (0.52-1.04); Estimated Glomerular Filt Rate 123 ml/min (>60); GFR (African American) 149 ML/MIN (>60); Globulin 3.9 g/dL (1.3-3.2); Glucose 102 mg/dl (74-100); Magnesium 1.8 mg/dl (1.6-2.3); Potassium 4.2 mmoL/L (3.5-5.1); Sodium 137 mmol/L (136-145); Total Protein,Serum 8.2 g/dl (6.3-8.2)
[2024-09-20 16:51] LABS: Microscopic, Urine URINE MICROSCOPIC (MICROSCOPIC)
[2024-09-20 16:52] LABS: Bilirubin,Urine Negative (Negative); Color,Urine YELLOW (Yellow); Glucose,Urine (UA) Negative (Negative); Ketones,Urine Negative (Negative); Leukocyte Esterase,Urine Negative (Negative); PH,Urine 6.5 (5.0-8.5); Protein,Urine Negative (Negative); Specific Gravity, Urine 1.020 (1.005-1.030); Urobilinogen,Urine 0.2 EU/dl (0.2)
[2024-09-20 16:58] LABS: Urine Pregnancy, HCG Qual. Negative (Negative)
[2024-09-20 17:00] VITALS: BP 118/73; PULSE 71; O2SAT 95
[2024-09-20] MEDS: SODIUM CHLORIDE 0.9% 10ML SYR (RAD ONLY) 10 ML IV (17:34)
[2024-09-20] MEDS: IOPAMIDOL-370 (76%);100ML BOTTLE 80 ML IV (17:34)
[2024-09-20] MEDS: 0.9 % SODIUM CHLORIDE 50 ML VIAL IV (17:34)
[2024-09-20 18:00] VITALS: BP 122/68; PULSE 79; O2SAT 98
[2024-09-20 18:07] LABS: Bacteria,Urine Trace /lpf; Squamous Epithelial Cell,Urine Occasional #/hpf (0-5); WBC,Urine Occasional #/hpf (0-3)
[2024-09-20 19:02] VITALS: BP 131/78; PULSE 70; RESP 18; TEMP 36.8; O2SAT 99
== END 2024-09-20 19:04 | disposition home or self-care (01) ==
PROVIDERS: Nurse Practitioner; Emergency Provider Emergency Medicine; PCP Internal Medicine
DX: G43.909 Migraine, unspecified, not intractable, without status migrainosus (principal); Z87.891 Personal history of nicotine dependence; Z79.3 Long term (current) use of hormonal contraceptives
CPT/HCPCS: 70450; 70496; 80053; 81001; 81025; 83735; 85025; 93005; 96361; 96374; 96375; 99285; J1790; J7030; Q9967

== ENCOUNTER 2024-11-21 13:57 | Outpatient (CLI) | payer BC, SELFPAY | END 2024-11-21 23:59 | disposition home or self-care (01) | LOC: LAB.DROPOF 11-22 13:57 | PROVIDERS: PCP Nurse Practitioner; Visit Provider Nurse Practitioner | DX: R35.0 Frequency of micturition (principal) | CPT/HCPCS: 87086; 87088 ==